=== PATIENT | male | born 1975 | race African-American/Black ===

== ENCOUNTER 2019-12-08 04:48 | Inpatient (IN) | payer MEDICAID, OTHER ==
[2019-12-08] VITALS (9 sets, daily range): BP systolic 91–178; BP diastolic 54–102
[~2019-12-08] VITALS: Ht 172.7 cm; Wt 170.1 kg
[2019-12-08] MEDS ORDERED: LABETALOL 5MG/ML SYR 20 MG/4 ML SYRINGE IV ONE (06:45)
[2019-12-08 07:00] LABS: HEMATOCRIT. 28.7 % (42.0-52.0); HEMOGLOBIN. 9.5 g/dL (14.0-18.0); MEAN CORPUSCULAR HEMOGLOBIN 29.8 pg (28.0-32.0); MEAN CORPUSCULAR VOLUME 89.9 fL (80.0-94.0); RED BLOOD CELL COUNT 3.19 mill/uL (4.7-6.1); RED CELL DISTRIBUTION WIDTH 17.2 % (11.6-14.6)
[2019-12-08 07:02] LABS: CHLORIDE 112 mEq/L (98-107)
[2019-12-08 07:10] LABS: CREATINE KINASE 733 IU/L (39-308)
[2019-12-08 07:21] LABS: CLARITY URINE CLOUDY (CLEAR); COLOR URINE YELLOW (YELLOW); KETONES URINE TRACE (NEGATIVE); LEUKOCYTE ESTERASE URINE NEGATIVE (NEGATIVE); NITRITE URINE NEGATIVE (NEGATIVE); OCCULT BLOOD URINE 2+ (NEGATIVE); PROTEIN URINE 3+ (NEGATIVE); SPECIFIC GRAVITY URINE 1.016 (1.005-1.030)
[2019-12-08 07:32] LABS: INR 1.3; PROTHROMBIN TIME 13.2 sec (9.6-11.0)
[2019-12-08] MEDS ORDERED: NICARDIPINE 40MG/200ML PREMIX 200 ML IV PRN (08:30)
[2019-12-08] MEDS ORDERED: DEXTROSE 50% WATER 50ML SYRINGE IV SCH (09:00)
[2019-12-08 09:03] LABS: PLATELET ESTIMATE NORMAL
[2019-12-08 09:04] LABS: PLATELET 202 x1000/uL (130-400)
[2019-12-08] MEDS ORDERED: PIPERACILLIN/TAZOBACTAM 3.375GM/50ML PREMIX IV ONE (09:45)
[2019-12-08] MEDS ORDERED: PIPERACILLIN/TAZ 3.375G PREMIX 50 ML IV NR (09:45)
[2019-12-08] MEDS ORDERED: SODIUM CHLORIDE 0.9% 250 ML IV ONE (09:45)
[2019-12-08] MEDS ORDERED: CLONIDINE 0.1MG TABLET PO PRN (11:00)
[2019-12-08] MEDS ORDERED: ONDANSETRON HCL 4MG/2ML INJ IV PRN (11:00)
[2019-12-08] MEDS ORDERED: PIPERACILLIN/TAZOBACTAM 3.375 G in DEXT 5% WATER 100 ML IV SCH (11:15)
[2019-12-08] MEDS ORDERED: LABETALOL 5MG/ML SYR 20 MG/4 ML SYRINGE IV SCH (11:45)
[2019-12-08] MEDS: CARVEDILOL 12.5MG TABLET PO SCH ×3 (11:45→21:00)
[2019-12-08] MEDS ORDERED: FUROSEMIDE 40MG/4ML VIAL IVP SCH (11:45)
[2019-12-08] MEDS ORDERED: HYDRALAZINE HCL 100MG TABLET PO SCH (12:00)
[2019-12-08 14:49] LABS: BG BASE EXCESS -1.6 mmol/L (-2.0-2.0); BG CARBOXYHEMOGLOBIN 0.3 % (0.5-1.5); BG DEOXYHEMOGLOBIN 6.3 % (0.0-5.0); BG FRACTION INSPIRED OXYGEN 21; BG HCO3 ACT 23.6 mmol/L (22.0-26.0); BG METHEMOGLOBIN 0.4 % (0.0-1.5); BG OXYGEN SATURATION 93.7 % (92.0-98.5); BG PCO2 41.3 mmHg (35.0-45.0); BG PH 7.374 (7.350-7.450); BG PO2 71.6 mmHg (75.0-100.0); BG SAMPLE SITE LEFT BRACHIAL; BG TOTAL HEMOGLOBIN 9.4 g/dL (12.0-18.0); BG VENT MODE ROOM AIR
[2019-12-08] MEDS ORDERED: PIPERACILLIN/TAZOBACTAM 2.25 G in DEXTROSE 5% WATER 50 ML IV SCH (16:00)
[2019-12-08] MEDS ORDERED: CARV3.1242 MT (17:33)
[2019-12-08] MEDS ORDERED: FURO-152 PO (17:34)
[2019-12-08] MEDS ORDERED: CARV3.1242 PO (17:36)
[2019-12-08] MEDS: POLYVINYL ALCOHOL OPHTH DROPS 15ML EACHEYE SCH (18:45)
[2019-12-08] MEDS: ENOXAPARIN 40MG/0.4ML SYR SUBCUT SCH (19:11)
[2019-12-08] MEDS: SODIUM POLYSTYRENE SULFONATE 15 G/60 ML BOT PO SCH ×2 (20:42→23:50)
[2019-12-08 21:55] LABS: BG BASE EXCESS -4.9 mmol/L (-2.0-2.0); BG CARBOXYHEMOGLOBIN 0.2 % (0.5-1.5); BG DEOXYHEMOGLOBIN 2.6 % (0.0-5.0); BG FRACTION INSPIRED OXYGEN 28; BG HCO3 ACT 21.5 mmol/L (22.0-26.0); BG METHEMOGLOBIN 0.1 % (0.0-1.5); BG OXYGEN SATURATION 97.4 % (92.0-98.5); BG OXYHEMOGLOBIN 97.1 % (94.0-97.0); BG PCO2 46.2 mmHg (35.0-45.0); BG PH 7.286 (7.350-7.450); BG PO2 106.1 mmHg (75.0-100.0); BG SAMPLE SITE RIGHT RADIAL; BG TOTAL HEMOGLOBIN 9.2 g/dL (12.0-18.0); BG VENT MODE NASAL CANNULA
[2019-12-08] MEDS: PIPERACILLIN/TAZOBACTAM 2.25 G in DEXTROSE 5% WATER 50 ML IV SCH (21:59)
[2019-12-08] MEDS: HYDRALAZINE HCL 100MG TABLET PO SCH (22:00)
[2019-12-08] MEDS ORDERED: IOHEXOL-350 100 ML BOTTLE ONE (23:18)
[2019-12-09] VITALS (11 sets, daily range): BP systolic 129–159; BP diastolic 59–102
[2019-12-09] MEDS: POLYVINYL ALCOHOL OPHTH DROPS 15ML EACHEYE SCH ×4 (00:50→18:43)
[2019-12-09] MEDS: PIPERACILLIN/TAZOBACTAM 2.25 G in DEXTROSE 5% WATER 50 ML IV SCH ×3 (04:00→21:06)
[2019-12-09 04:13] LABS: PHOSPHORUS 4.4 mg/dL (2.5-4.9)
[2019-12-09 04:29] LABS: T4 FREE 1.12 ng/dL (0.76-1.46)
[2019-12-09] MEDS: HYDRALAZINE HCL 100MG TABLET PO SCH ×3 (05:49→21:06)
[2019-12-09 06:33] LABS: HEMATOCRIT. 27.4 % (42.0-52.0); MEAN CORPUSCULAR HEMOGLOBIN 29.7 pg (28.0-32.0); MEAN CORPUSCULAR VOLUME 90.5 fL (80.0-94.0); MEAN PLATELET VOLUME 10.6 fl (7.4-10.4); PLATELET 125 x1000/uL (130-400); RED BLOOD CELL COUNT 3.03 mill/uL (4.7-6.1)
[2019-12-09] MEDS: AMLODIPINE 10MG TABLET PO SCH ×2 (08:31→08:33)
[2019-12-09] MEDS: CARVEDILOL 12.5MG TABLET PO SCH ×2 (08:31→21:06)
[2019-12-09 09:57] LABS: *AMPHETAMINES SCREEN URINE NEGATIVE (NEGATIVE); *BARBITURATES SCREEN URINE NEGATIVE (NEGATIVE); *BENZODIAZEPINES SCREEN URINE NEGATIVE (NEGATIVE); *COCAINE SCREEN URINE NEGATIVE (NEGATIVE); CANNABINOID URINE SCREEN NEGATIVE (NEGATIVE); OPIATES URINE SCREEN NEGATIVE (NEGATIVE); PHENCYCLIDINE URINE SCREEN NEGATIVE (NEGATIVE)
[2019-12-09 10:00] LABS: METHADONE URINE SCREEN NEGATIVE (NEGATIVE)
[2019-12-09] MEDS ORDERED: IOHEXOL-350 100 ML BOTTLE ONE (11:07)
[2019-12-09] MEDS: ACETAMINOPHEN 325MG TABLET PO PRN ×2 (11:28→21:06)
[2019-12-09] MEDS: FUROSEMIDE 40MG/4ML VIAL IVP SCH (13:52)
[2019-12-09] MEDS: ENOXAPARIN 40MG/0.4ML SYR SUBCUT SCH (13:53)
[2019-12-09 14:38] LABS: PLATELET ESTIMATE SLIGHTLY DECREASED
[2019-12-10] VITALS (9 sets, daily range): BP systolic 80–171; BP diastolic 26–98
[2019-12-10] MEDS: PIPERACILLIN/TAZOBACTAM 2.25 G in DEXTROSE 5% WATER 50 ML IV SCH ×3 (03:44→21:14)
[2019-12-10] MEDS: POLYVINYL ALCOHOL OPHTH DROPS 15ML EACHEYE SCH ×4 (05:50→18:00)
[2019-12-10] MEDS: HYDRALAZINE HCL 100MG TABLET PO SCH ×3 (05:50→21:15)
[2019-12-10 06:11] LABS: HEMATOCRIT. 24.1 % (42.0-52.0); HEMOGLOBIN. 7.7 g/dL (14.0-18.0); MEAN CORPUSCULAR VOLUME 90.6 fL (80.0-94.0); MEAN PLATELET VOLUME 10.5 fl (7.4-10.4); PLATELET 98 x1000/uL (130-400); RED BLOOD CELL COUNT 2.66 mill/uL (4.7-6.1); RED CELL DISTRIBUTION WIDTH 17.4 % (11.6-14.6)
[2019-12-10] MEDS: ENOXAPARIN 40MG/0.4ML SYR SUBCUT SCH (06:31)
[2019-12-10 06:33] LABS: PHOSPHORUS 4.6 mg/dL (2.5-4.9)
[2019-12-10 09:11] LABS: IMMUNOGLOBULIN A 379 mg/dL (90-386); IMMUNOGLOBULIN G 2676 mg/dL (603-1613); IMMUNOGLOBULIN M 140 mg/dL (20-172)
[2019-12-10] MEDS: FUROSEMIDE 40MG/4ML VIAL IVP SCH (09:46)
[2019-12-10] MEDS: AMLODIPINE 10MG TABLET PO SCH (09:46)
[2019-12-10] MEDS: CARVEDILOL 12.5MG TABLET PO SCH ×2 (09:46→21:00)
[2019-12-10] MEDS ORDERED: LIDOCAINE HCL 1% 20ML VIAL (Pyxis) INJ ONE (12:53)
[2019-12-10] MEDS ORDERED: SODIUM BICARBONATE 4% (2.4MEQ) 5ML VIAL IV ONE (12:53)
[2019-12-10] MEDS: ACETAMINOPHEN 325MG TABLET PO PRN ×2 (13:11→21:19)
[2019-12-10 14:18] LABS: PLATELET ESTIMATE SLIGHTLY DECREASED
[2019-12-11] VITALS (12 sets, daily range): BP systolic 97–126; BP diastolic 43–76
[2019-12-11] MEDS: ACETAMINOPHEN 325MG TABLET PO PRN ×2 (05:34→15:19)
[2019-12-11] MEDS: PIPERACILLIN/TAZOBACTAM 2.25 G in DEXTROSE 5% WATER 50 ML IV SCH ×2 (05:34→11:13)
[2019-12-11] MEDS: HYDRALAZINE HCL 100MG TABLET PO SCH ×3 (05:36→22:00)
[2019-12-11] MEDS: POLYVINYL ALCOHOL OPHTH DROPS 15ML EACHEYE SCH ×4 (05:36→18:00)
[2019-12-11 07:25] LABS: BASOPHILS % 2.1 % (0.0-2.0); EOSINOPHILS % 8.7 % (0.0-5.0); HEMATOCRIT. 25.2 % (42.0-52.0); HEMOGLOBIN. 8.2 g/dL (14.0-18.0); LYMPHOCYTES % 9.3 % (20.0-50.0); MEAN CORPUSCULAR HEMOGLOBIN 29.3 pg (28.0-32.0); MEAN CORPUSCULAR VOLUME 89.5 fL (80.0-94.0); MEAN PLATELET VOLUME 10.5 fl (7.4-10.4); MONOCYTES % 12.4 % (2.0-8.0); NEUTROPHILS % 67.5 % (40.0-76.0); PLATELET 96 x1000/uL (130-400); RED BLOOD CELL COUNT 2.81 mill/uL (4.7-6.1); RED CELL DISTRIBUTION WIDTH 16.5 % (11.6-14.6)
[2019-12-11 07:46] LABS: PHOSPHORUS 4.9 mg/dL (2.5-4.9)
[2019-12-11] MEDS: ENOXAPARIN 40MG/0.4ML SYR SUBCUT SCH (09:00)
[2019-12-11] MEDS: CARVEDILOL 12.5MG TABLET PO SCH ×2 (09:00→21:00)
[2019-12-11] MEDS: AMLODIPINE 10MG TABLET PO SCH (09:00)
[2019-12-11] MEDS: FUROSEMIDE 40MG/4ML VIAL IVP SCH (09:29)
[2019-12-11 11:27] LABS: HEPATITIS B SURFACE AB < 3.1 mIU/mL
[2019-12-11 11:38] LABS: HEPATITIS B SURFACE ANTIGEN NEGATIVE
[2019-12-12] VITALS (13 sets, daily range): BP systolic 112–141; BP diastolic 54–74
[2019-12-12] MEDS: PIPERACILLIN/TAZOBACTAM 2.25 G in DEXTROSE 5% WATER 50 ML IV SCH ×4 (03:38→21:09)
[2019-12-12] MEDS: POLYVINYL ALCOHOL OPHTH DROPS 15ML EACHEYE SCH ×4 (03:40→17:47)
[2019-12-12 05:11] LABS: HIV SCREEN 4G Non Reactive (Non Reactive)
[2019-12-12] MEDS: HYDRALAZINE HCL 100MG TABLET PO SCH ×3 (05:40→22:16)
[2019-12-12] MEDS: ENOXAPARIN 40MG/0.4ML SYR SUBCUT SCH (09:20)
[2019-12-12] MEDS: AMLODIPINE 10MG TABLET PO SCH (09:23)
[2019-12-12] MEDS: CARVEDILOL 12.5MG TABLET PO SCH ×2 (09:24→21:11)
[2019-12-12] MEDS: FUROSEMIDE 40MG/4ML VIAL IVP SCH (09:24)
[2019-12-12 10:31] LABS: EOSINOPHILS % 10.1 % (0.0-5.0); HEMATOCRIT. 24.7 % (42.0-52.0); LYMPHOCYTES % 8.9 % (20.0-50.0); MEAN CORPUSCULAR HEMOGLOBIN 29.1 pg (28.0-32.0); MEAN CORPUSCULAR VOLUME 89.8 fL (80.0-94.0); MEAN PLATELET VOLUME 9.9 fl (7.4-10.4); MONOCYTES % 13.7 % (2.0-8.0); NEUTROPHILS % 66.3 % (40.0-76.0); PLATELET 79 x1000/uL (130-400); RED BLOOD CELL COUNT 2.75 mill/uL (4.7-6.1); RED CELL DISTRIBUTION WIDTH 17.2 % (11.6-14.6)
[2019-12-12 10:53] LABS: PHOSPHORUS 4.4 mg/dL (2.5-4.9)
[2019-12-12] MEDS: ACETAMINOPHEN 325MG TABLET PO PRN (12:38)
[2019-12-13] VITALS (14 sets, daily range): BP systolic 107–139; BP diastolic 25–76
[2019-12-13] MEDS: POLYVINYL ALCOHOL OPHTH DROPS 15ML EACHEYE SCH ×5 (00:17→22:16)
[2019-12-13] MEDS: PIPERACILLIN/TAZOBACTAM 2.25 G in DEXTROSE 5% WATER 50 ML IV SCH ×2 (04:40→20:35)
[2019-12-13] MEDS: HYDRALAZINE HCL 100MG TABLET PO SCH ×3 (05:04→22:00)
[2019-12-13 07:20] LABS: PHOSPHORUS 4.8 mg/dL (2.5-4.9)
[2019-12-13 07:30] LABS: HEMATOCRIT. 24.2 % (42.0-52.0); MEAN CORPUSCULAR HEMOGLOBIN 29.6 pg (28.0-32.0); MEAN CORPUSCULAR VOLUME 89.4 fL (80.0-94.0); PLATELET 77 x1000/uL (130-400); RED BLOOD CELL COUNT 2.71 mill/uL (4.7-6.1)
[2019-12-13] MEDS: CARVEDILOL 12.5MG TABLET PO SCH ×2 (09:00→20:35)
[2019-12-13] MEDS: FUROSEMIDE 40MG/4ML VIAL IVP SCH (09:00)
[2019-12-13] MEDS: AMLODIPINE 10MG TABLET PO SCH (09:00)
[2019-12-13 13:45] LABS: PLATELET ESTIMATE DECREASED
[2019-12-13] MEDS: ACETAMINOPHEN 325MG TABLET PO PRN (20:35)
[2019-12-14] VITALS (12 sets, daily range): BP systolic 106–165; BP diastolic 59–111
[2019-12-14] MEDS: ACETAMINOPHEN 325MG TABLET PO PRN (03:50)
[2019-12-14] MEDS: HYDRALAZINE HCL 100MG TABLET PO SCH (05:47)
[2019-12-14 07:35] LABS: HEMATOCRIT. 23.5 % (42.0-52.0); HEMOGLOBIN. 7.7 g/dL (14.0-18.0); MEAN CORPUSCULAR HEMOGLOBIN 29.2 pg (28.0-32.0); MEAN CORPUSCULAR VOLUME 89.1 fL (80.0-94.0); MEAN PLATELET VOLUME 9.7 fl (7.4-10.4); PLATELET 60 x1000/uL (130-400); RED BLOOD CELL COUNT 2.64 mill/uL (4.7-6.1); RED CELL DISTRIBUTION WIDTH 17.2 % (11.6-14.6)
[2019-12-14 07:53] LABS: PHOSPHORUS 4.7 mg/dL (2.5-4.9)
[2019-12-14] MEDS: AMLODIPINE 10MG TABLET PO SCH (09:29)
[2019-12-14] MEDS: POLYVINYL ALCOHOL OPHTH DROPS 15ML EACHEYE SCH ×4 (09:29→20:37)
[2019-12-14] MEDS: FUROSEMIDE 40MG/4ML VIAL IVP SCH (09:29)
[2019-12-14] MEDS: CARVEDILOL 12.5MG TABLET PO SCH ×2 (09:30→20:36)
[2019-12-14 09:51] LABS: PLATELET ESTIMATE DECREASED
[2019-12-14] MEDS ORDERED: LOSA50TA41 MT (12:12)
[2019-12-14] MEDS ORDERED: COR12 PO (12:12)
[2019-12-14] MEDS: HYDRALAZINE HCL 50MG TABLET PO SCH (17:26)
[2019-12-15] VITALS (12 sets, daily range): BP systolic 97–140; BP diastolic 49–91
[2019-12-15] MEDS: HYDRALAZINE HCL 50MG TABLET PO SCH ×4 (00:18→17:41)
[2019-12-15] MEDS: ACETAMINOPHEN 325MG TABLET PO PRN ×2 (00:21→08:23)
[2019-12-15 07:05] LABS: BASOPHILS % 1.4 % (0.0-2.0); EOSINOPHILS % 8.9 % (0.0-5.0); HEMATOCRIT. 25.3 % (42.0-52.0); HEMOGLOBIN. 8.3 g/dL (14.0-18.0); LYMPHOCYTES % 10.4 % (20.0-50.0); MEAN CORPUSCULAR HEMOGLOBIN 29.2 pg (28.0-32.0); MEAN CORPUSCULAR VOLUME 89.1 fL (80.0-94.0); MEAN PLATELET VOLUME 9.7 fl (7.4-10.4); MONOCYTES % 14.1 % (2.0-8.0); NEUTROPHILS % 65.2 % (40.0-76.0); PLATELET 70 x1000/uL (130-400); RED BLOOD CELL COUNT 2.84 mill/uL (4.7-6.1); RED CELL DISTRIBUTION WIDTH 16.8 % (11.6-14.6)
[2019-12-15] MEDS: FUROSEMIDE 40MG/4ML VIAL IVP SCH (08:25)
[2019-12-15] MEDS: AMLODIPINE 2.5MG TABLET PO SCH ×2 (08:25→20:55)
[2019-12-15] MEDS: CARVEDILOL 12.5MG TABLET PO SCH ×2 (08:25→20:54)
[2019-12-15] MEDS: POLYVINYL ALCOHOL OPHTH DROPS 15ML EACHEYE SCH ×4 (08:32→21:00)
[2019-12-16] VITALS (9 sets, daily range): BP systolic 98–135; BP diastolic 42–73
[2019-12-16] MEDS: HYDRALAZINE HCL 50MG TABLET PO SCH ×3 (06:23→12:00)
[2019-12-16 06:35] LABS: HEMATOCRIT. 24.6 % (42.0-52.0); HEMOGLOBIN. 8.1 g/dL (14.0-18.0); MEAN CORPUSCULAR HEMOGLOBIN 29.4 pg (28.0-32.0); MEAN CORPUSCULAR VOLUME 89.4 fL (80.0-94.0); MEAN PLATELET VOLUME 10.4 fl (7.4-10.4); PLATELET 76 x1000/uL (130-400); RED BLOOD CELL COUNT 2.75 mill/uL (4.7-6.1)
[2019-12-16 06:44] LABS: PHOSPHORUS 4.5 mg/dL (2.5-4.9)
[2019-12-16] MEDS: ACETAMINOPHEN 325MG TABLET PO PRN (09:24)
[2019-12-16] MEDS: FUROSEMIDE 40MG/4ML VIAL IVP SCH (09:24)
[2019-12-16] MEDS: CARVEDILOL 12.5MG TABLET PO SCH (09:27)
[2019-12-16] MEDS: POLYVINYL ALCOHOL OPHTH DROPS 15ML EACHEYE SCH ×2 (09:29→13:00)
[2019-12-16] MEDS: AMLODIPINE 2.5MG TABLET PO SCH (11:04)
[2019-12-16 19:13] LABS: PLATELET ESTIMATE DECREASED
== END 2019-12-16 14:30 | disposition home health service (06) | DRG 194 ==
LOC: ER 05:06 → 5EST 10:03 → EDBEDREQ 10:07 → ENRESERV 11:59 → 5EST 12-09 01:05
PROVIDERS: ADMIT Internal Medicine; ATTEND Internal Medicine
PROC: 05HY33Z Insertion of Infusion Device into Upper Vein, Percutaneous Approach (ICD-10-PCS; principal; 2019-12-09)
PROC: B54MZZA Ultrasonography of Right Upper Extremity Veins, Guidance (ICD-10-PCS; 2019-12-09)
PROC: 0W9G3ZZ Drainage of Peritoneal Cavity, Percutaneous Approach (ICD-10-PCS; 2019-12-10)
PROC: 5A09457 Assistance with Respiratory Ventilation, 24-96 Consecutive Hours, Continuous Positive Airway Pressure (ICD-10-PCS; 2019-12-10)
PROC: 5A1D70Z Performance of Urinary Filtration, Intermittent, Less than 6 Hours Per Day (ICD-10-PCS; 2019-12-11)
PROC: 5A1D70Z Performance of Urinary Filtration, Intermittent, Less than 6 Hours Per Day (ICD-10-PCS; 2019-12-13)
PROC: 5A1D70Z Performance of Urinary Filtration, Intermittent, Less than 6 Hours Per Day (ICD-10-PCS; 2019-12-15)
DX: I13.2 Hypertensive heart and chronic kidney disease with heart failure and with stage 5 chronic kidney disease, or end stage renal disease (principal); I50.23 Acute on chronic systolic (congestive) heart failure; N17.9 Acute kidney failure, unspecified; I16.0 Hypertensive urgency; E66.01 Morbid (severe) obesity due to excess calories; E87.5 Hyperkalemia; E87.8 Other disorders of electrolyte and fluid balance, not elsewhere classified; E44.0 Moderate protein-calorie malnutrition; D64.9 Anemia, unspecified; N50.89 Other specified disorders of the male genital organs; W01.0XXA Fall on same level from slipping, tripping and stumbling without subsequent striking against object, initial encounter; I42.9 Cardiomyopathy, unspecified; N13.8 Other obstructive and reflux uropathy; E24.9 Cushing's syndrome, unspecified; E87.2 Acidosis; E78.5 Hyperlipidemia, unspecified; G93.41 Metabolic encephalopathy; M62.82 Rhabdomyolysis; G82.50 Quadriplegia, unspecified; E16.2 Hypoglycemia, unspecified; I27.20 Pulmonary hypertension, unspecified; I31.3 Pericardial effusion (noninflammatory); Z20.828 Contact with and (suspected) exposure to other viral communicable diseases; R18.8 Other ascites; D61.818 Other pancytopenia; N18.5 Chronic kidney disease, stage 5; Z95.810 Presence of automatic (implantable) cardiac defibrillator; Z68.43 Body mass index [BMI] 50.0-59.9, adult; Y93.89 Activity, other specified; Y92.89 Other specified places as the place of occurrence of the external cause; Y99.8 Other external cause status
CPT/HCPCS: 36415; 36600; 49083; 70496; 71045; 73560; 76770; 76937; 80048; 80053; 80061; 80305; 81003; 82040; 82375; 82550; 82784; 82805; 82962; 83605; 83735; 84100; 84134; 84145; 84439; 84443; 84484; 85025; 86334; 86705; 86706; 86803; 87340; 87389; 87635; 92610; 93005; 93306; 93970; 94660; 96365; 97116; 97162; 97530; 97535; 99291; C1725; J1650; J1940; J2543; J3490; J7050; J7060; Q9967

== ENCOUNTER 2020-03-18 11:37 | Inpatient (IN) | payer MEDICAID ==
[~2020-03-18] VITALS: Ht 172.7 cm; Wt 144.6 kg
[~2020-03-18 11:37] MED LIST: COR12 PO; LOSA50TA41 MT
[2020-03-18 12:17] LABS: EOSINOPHILS % 4.6 % (0.0-5.0); HEMATOCRIT. 29.5 % (42.0-52.0); HEMOGLOBIN. 9.3 g/dL (14.0-18.0); LYMPHOCYTES % 7.3 % (20.0-50.0); MEAN CORPUSCULAR HEMOGLOBIN 29.6 pg (28.0-32.0); MEAN CORPUSCULAR VOLUME 93.6 fL (80.0-94.0); MEAN PLATELET VOLUME 10.3 fl (7.4-10.4); MONOCYTES % 10.6 % (2.0-8.0); NEUTROPHILS % 76.5 % (40.0-76.0); PLATELET 129 x1000/uL (130-400); RED BLOOD CELL COUNT 3.16 mill/uL (4.7-6.1); RED CELL DISTRIBUTION WIDTH 16.2 % (11.6-14.6)
[2020-03-18 12:24] LABS: CHLORIDE 111 mEq/L (98-107)
[2020-03-18] MEDS ORDERED: DEXTROSE 50% WATER 50ML SYRINGE IV ONE ×2 (13:00→16:15)
[2020-03-18] MEDS ORDERED: ACETAMINOPHEN 650MG/20.3ML UDC PO ONE (13:00)
[2020-03-18] MEDS ORDERED: FUROSEMIDE 40MG/4ML VIAL IVP ONE (13:00)
[2020-03-18] MEDS ORDERED: INSULIN LISPRO 100 UNITS/ML SUBCUT ONE ×2 (13:00→13:45)
[2020-03-18] MEDS ORDERED: ASPIRIN 325MG EC TABLET PO ONE (13:00)
[2020-03-18] MEDS ORDERED: ONDANSETRON HCL 4MG/2ML INJ IV PRN (15:15)
[2020-03-18 16:00] VITALS: BP 184/138
[2020-03-18] MEDS: NIFEDIPINE XL 60MG TAB PO SCH (16:36)
[2020-03-18] MEDS: SODIUM POLYSTYRENE SULFONATE 15 G/60 ML BOT PO NR ×2 (16:50→20:49)
[2020-03-18 18:00] VITALS: BP 184/138
[2020-03-18] MEDS ORDERED: CLONIDINE 0.1MG TABLET PO PRN (18:00)
[2020-03-18] MEDS ORDERED: HYDRALAZINE HCL 100MG TABLET PO NR (18:30)
[2020-03-18] MEDS: ENOXAPARIN 40MG/0.4ML SYR SUBCUT SCH (18:33)
[2020-03-18 20:00] VITALS: BP 191/90
[2020-03-18] MEDS ORDERED: FUROSEMIDE 100MG/10ML VIAL IVP NR (20:00)
[2020-03-18] MEDS: HYDRALAZINE HCL 50MG TABLET PO SCH (20:48)
[2020-03-19] VITALS (7 sets, daily range): BP systolic 129–213; BP diastolic 75–116
[2020-03-19] MEDS: CLONIDINE 0.2MG TABLET PO PRN ×3 (00:41→22:00)
[2020-03-19 05:53] LABS: BASOPHILS % 1.3 % (0.0-2.0); EOSINOPHILS % 6.9 % (0.0-5.0); HEMATOCRIT. 24.7 % (42.0-52.0); LYMPHOCYTES % 7.1 % (20.0-50.0); MEAN CORPUSCULAR HEMOGLOBIN 29.9 pg (28.0-32.0); MEAN CORPUSCULAR VOLUME 91.9 fL (80.0-94.0); MEAN PLATELET VOLUME 9.9 fl (7.4-10.4); MONOCYTES % 12.9 % (2.0-8.0); NEUTROPHILS % 71.8 % (40.0-76.0); PLATELET 125 x1000/uL (130-400); RED BLOOD CELL COUNT 2.69 mill/uL (4.7-6.1); RED CELL DISTRIBUTION WIDTH 15.5 % (11.6-14.6)
[2020-03-19] MEDS: HYDRALAZINE HCL 50MG TABLET PO SCH (09:10)
[2020-03-19] MEDS: NIFEDIPINE XL 60MG TAB PO SCH ×2 (09:10→21:59)
[2020-03-19] MEDS: ACETAMINOPHEN 325MG TABLET PO PRN (13:15)
[2020-03-19] MEDS: HYDRALAZINE HCL 100MG TABLET PO SCH ×2 (14:20→21:59)
[2020-03-19] MEDS: TRAMADOL 50MG TABLET PO PRN (15:09)
[2020-03-19] MEDS: ENOXAPARIN 40MG/0.4ML SYR SUBCUT SCH (19:09)
[2020-03-19] MEDS: EPOETIN ALFA-EPBX 10,000 UNIT/ML VIAL SUBCUT SCH (22:00)
[2020-03-20] VITALS: BP 142/84
[2020-03-20 04:00] VITALS: BP 114/65
[2020-03-20] MEDS: HYDRALAZINE HCL 100MG TABLET PO SCH ×3 (06:00→21:12)
[2020-03-20 07:25] LABS: HEMATOCRIT. 24.8 % (42.0-52.0); HEMOGLOBIN. 8.1 g/dL (14.0-18.0); MEAN CORPUSCULAR HEMOGLOBIN 30.1 pg (28.0-32.0); MEAN CORPUSCULAR VOLUME 91.7 fL (80.0-94.0); MEAN PLATELET VOLUME 10.2 fl (7.4-10.4); PLATELET 144 x1000/uL (130-400); RED BLOOD CELL COUNT 2.71 mill/uL (4.7-6.1); RED CELL DISTRIBUTION WIDTH 15.5 % (11.6-14.6)
[2020-03-20 07:44] LABS: PHOSPHORUS 5.9 mg/dL (2.5-4.9)
[2020-03-20] MEDS: TRAMADOL 50MG TABLET PO PRN (07:59)
[2020-03-20 08:00] VITALS: BP 138/92
[2020-03-20] MEDS: NIFEDIPINE XL 60MG TAB PO SCH ×2 (08:01→21:12)
[2020-03-20 11:37] VITALS: BP 123/75
[2020-03-20 13:36] LABS: PLATELET ESTIMATE NORMAL
[2020-03-20 16:00] VITALS: BP 150/108
[2020-03-20] MEDS: ENOXAPARIN 40MG/0.4ML SYR SUBCUT SCH (18:01)
[2020-03-20 20:00] VITALS: BP 169/90
[2020-03-20 20:48] LABS: INR 1.3; PROTHROMBIN TIME 13.5 sec (9.6-11.0)
[2020-03-20] MEDS: CLONIDINE 0.2MG TABLET PO PRN (21:12)
[2020-03-20] MEDS: FAMOTIDINE 20MG TABLET PO SCH (21:13)
[2020-03-21] VITALS: BP 136/74
[2020-03-21 04:00] VITALS: BP 137/68
[2020-03-21] MEDS: HYDRALAZINE HCL 100MG TABLET PO SCH ×3 (06:11→22:00)
[2020-03-21 08:00] VITALS: BP 135/84
[2020-03-21] MEDS: NIFEDIPINE XL 60MG TAB PO SCH ×2 (08:13→21:00)
[2020-03-21 08:17] LABS: HEMATOCRIT. 23.2 % (42.0-52.0); HEMOGLOBIN. 7.6 g/dL (14.0-18.0); MEAN CORPUSCULAR HEMOGLOBIN 30.4 pg (28.0-32.0); MEAN CORPUSCULAR VOLUME 92.8 fL (80.0-94.0); PLATELET 104 x1000/uL (130-400); RED BLOOD CELL COUNT 2.51 mill/uL (4.7-6.1); RED CELL DISTRIBUTION WIDTH 15.7 % (11.6-14.6)
[2020-03-21 08:36] LABS: PHOSPHORUS 5.8 mg/dL (2.5-4.9)
[2020-03-21] MEDS ORDERED: LIDOCAINE HCL 1% 20ML VIAL (Pyxis) INJ ONE (09:13)
[2020-03-21] MEDS ORDERED: SODIUM BICARBONATE 4% (2.4MEQ) 5ML VIAL IV ONE (09:13)
[2020-03-21 11:55] VITALS: BP 121/66
[2020-03-21 16:00] VITALS: BP 127/61
[2020-03-21 20:00] VITALS: BP 109/70
[2020-03-21 21:25] LABS: PLATELET ESTIMATE DECREASED
[2020-03-21] MEDS: FAMOTIDINE 20MG TABLET PO SCH (22:45)
[2020-03-22] VITALS: BP 126/70
[2020-03-22 04:00] VITALS: BP 161/68
[2020-03-22] MEDS: HYDRALAZINE HCL 100MG TABLET PO SCH ×3 (05:50→21:44)
[2020-03-22 06:31] LABS: HEMATOCRIT. 24.7 % (42.0-52.0); HEMOGLOBIN. 8.1 g/dL (14.0-18.0); MEAN CORPUSCULAR HEMOGLOBIN 30.1 pg (28.0-32.0); MEAN CORPUSCULAR VOLUME 91.7 fL (80.0-94.0); MEAN PLATELET VOLUME 10.3 fl (7.4-10.4); PLATELET 116 x1000/uL (130-400); RED BLOOD CELL COUNT 2.69 mill/uL (4.7-6.1); RED CELL DISTRIBUTION WIDTH 15.6 % (11.6-14.6)
[2020-03-22 06:35] LABS: PHOSPHORUS 6.1 mg/dL (2.5-4.9)
[2020-03-22 08:00] VITALS: BP 108/44
[2020-03-22] MEDS: NIFEDIPINE XL 60MG TAB PO SCH ×2 (09:00→21:25)
[2020-03-22 12:00] VITALS: BP 143/75
[2020-03-22 13:57] LABS: PLATELET ESTIMATE SLIGHTLY DECREASED
[2020-03-22 16:00] VITALS: BP 125/55
[2020-03-22] MEDS: ENOXAPARIN 40MG/0.4ML SYR SUBCUT SCH (18:00)
[2020-03-22 20:00] VITALS: BP 123/63
[2020-03-22] MEDS: FAMOTIDINE 20MG TABLET PO SCH (21:25)
[2020-03-22] MEDS: EPOETIN ALFA-EPBX 10,000 UNIT/ML VIAL SUBCUT SCH (21:29)
[2020-03-23] VITALS: BP 115/59
[2020-03-23 04:00] VITALS: BP 121/60
[2020-03-23] MEDS: HYDRALAZINE HCL 100MG TABLET PO SCH ×3 (06:00→22:04)
[2020-03-23 07:24] LABS: HEMATOCRIT. 25.6 % (42.0-52.0); HEMOGLOBIN. 8.3 g/dL (14.0-18.0); MEAN CORPUSCULAR HEMOGLOBIN 29.6 pg (28.0-32.0); MEAN CORPUSCULAR VOLUME 91.7 fL (80.0-94.0); MEAN PLATELET VOLUME 10.6 fl (7.4-10.4); PLATELET 102 x1000/uL (130-400); RED CELL DISTRIBUTION WIDTH 15.9 % (11.6-14.6)
[2020-03-23 08:00] VITALS: BP_SYST 103; BP_SYST 118; BP_DIAS 62; BP_DIAS 70
[2020-03-23 08:16] LABS: PHOSPHORUS 5.5 mg/dL (2.5-4.9)
[2020-03-23] MEDS: NIFEDIPINE XL 60MG TAB PO SCH ×2 (09:06→22:04)
[2020-03-23 10:31] LABS: PLATELET ESTIMATE DECREASED
[2020-03-23] MEDS: OMEPRAZOLE 20MG CAPSULE EXTENDED RELEASE PO SCH (18:49)
[2020-03-23] MEDS: ENOXAPARIN 40MG/0.4ML SYR SUBCUT SCH (18:50)
[2020-03-23] MEDS: THROAT LOZENGES-BENZOCAINE/MENTH/CETYLPYRD CL LOZENGES MM PRN (18:51)
[2020-03-23 20:00] VITALS: BP 140/74
[2020-03-24] VITALS: BP 171/82
[2020-03-24] MEDS: CLONIDINE 0.2MG TABLET PO PRN (00:54)
[2020-03-24] MEDS: THROAT LOZENGES-BENZOCAINE/MENTH/CETYLPYRD CL LOZENGES MM PRN (00:59)
[2020-03-24 04:00] VITALS: BP 158/77
[2020-03-24 06:43] LABS: BASOPHILS % 0.9 % (0.0-2.0); EOSINOPHILS % 4.7 % (0.0-5.0); HEMATOCRIT. 23.3 % (42.0-52.0); HEMOGLOBIN. 7.7 g/dL (14.0-18.0); LYMPHOCYTES % 7.5 % (20.0-50.0); MEAN CORPUSCULAR HEMOGLOBIN 29.9 pg (28.0-32.0); MEAN CORPUSCULAR VOLUME 90.7 fL (80.0-94.0); MEAN PLATELET VOLUME 10.1 fl (7.4-10.4); MONOCYTES % 14.9 % (2.0-8.0); PLATELET 81 x1000/uL (130-400); RED BLOOD CELL COUNT 2.57 mill/uL (4.7-6.1)
[2020-03-24] MEDS: HYDRALAZINE HCL 100MG TABLET PO SCH ×3 (07:06→22:36)
[2020-03-24] MEDS: OMEPRAZOLE 20MG CAPSULE EXTENDED RELEASE PO SCH (07:07)
[2020-03-24 07:20] LABS: HEPATITIS B SURFACE ANTIGEN NEGATIVE; PHOSPHORUS 4.9 mg/dL (2.5-4.9)
[2020-03-24 07:49] LABS: HEPATITIS A AB IGM NEGATIVE (NEGATIVE)
[2020-03-24 08:00] VITALS: BP 126/62
[2020-03-24] MEDS: NIFEDIPINE XL 60MG TAB PO SCH ×2 (09:00→22:36)
[2020-03-24 12:00] VITALS: BP 120/59
[2020-03-24 16:00] VITALS: BP 115/59
[2020-03-24 20:00] VITALS: BP 127/80
[2020-03-24] MEDS: EPOETIN ALFA-EPBX 10,000 UNIT/ML VIAL SUBCUT SCH (22:37)
[2020-03-25] VITALS: BP 131/87
[2020-03-25 04:00] VITALS: BP 118/75
[2020-03-25] MEDS: HYDRALAZINE HCL 100MG TABLET PO SCH ×3 (07:23→21:42)
[2020-03-25] MEDS: OMEPRAZOLE 20MG CAPSULE EXTENDED RELEASE PO SCH (07:24)
[2020-03-25 08:00] VITALS: BP 154/80
[2020-03-25 08:37] LABS: HEMOGLOBIN. 8.6 g/dL (14.0-18.0); MEAN CORPUSCULAR HEMOGLOBIN 30.1 pg (28.0-32.0); MEAN CORPUSCULAR VOLUME 91.3 fL (80.0-94.0); MEAN PLATELET VOLUME 10.9 fl (7.4-10.4); PLATELET 77 x1000/uL (130-400); RED BLOOD CELL COUNT 2.85 mill/uL (4.7-6.1); RED CELL DISTRIBUTION WIDTH 15.4 % (11.6-14.6)
[2020-03-25 08:48] LABS: PHOSPHORUS 4.5 mg/dL (2.5-4.9)
[2020-03-25] MEDS: NIFEDIPINE XL 60MG TAB PO SCH ×2 (09:01→21:42)
[2020-03-25] MEDS: ACETAMINOPHEN 325MG TABLET PO PRN (09:15)
[2020-03-25] MEDS ORDERED: DIPHENHYDRAMINE 25MG CAPSULE PO PRN (11:00)
[2020-03-25 12:00] VITALS: BP 130/76
[2020-03-25 13:18] LABS: PLATELET ESTIMATE DECREASED
[2020-03-25] MEDS: TRAMADOL 50MG TABLET PO PRN (13:57)
[2020-03-25 16:00] VITALS: BP 116/60
[2020-03-25 20:00] VITALS: BP 135/76
[2020-03-26] VITALS: BP 130/75
[2020-03-26 04:00] VITALS: BP 116/54
[2020-03-26] MEDS: OMEPRAZOLE 20MG CAPSULE EXTENDED RELEASE PO SCH (06:46)
[2020-03-26] MEDS: HYDRALAZINE HCL 100MG TABLET PO SCH ×3 (06:46→21:29)
[2020-03-26 08:00] VITALS: BP 125/68
[2020-03-26] MEDS: FOLIC ACID/VITAMIN B COMP W-C TABLET PO SCH (09:58)
[2020-03-26] MEDS: NIFEDIPINE XL 60MG TAB PO SCH ×2 (09:58→21:28)
[2020-03-26] MEDS: THROAT LOZENGES-BENZOCAINE/MENTH/CETYLPYRD CL LOZENGES MM PRN ×2 (10:02→16:52)
[2020-03-26] MEDS: TRAMADOL 50MG TABLET PO PRN (10:11)
[2020-03-26 12:00] VITALS: BP 120/72
[2020-03-26 12:44] LABS: HEMOGLOBIN. 8.5 g/dL (14.0-18.0); MEAN CORPUSCULAR HEMOGLOBIN 29.7 pg (28.0-32.0); MEAN CORPUSCULAR VOLUME 90.6 fL (80.0-94.0); MEAN PLATELET VOLUME 9.5 fl (7.4-10.4); PLATELET 90 x1000/uL (130-400); RED BLOOD CELL COUNT 2.87 mill/uL (4.7-6.1); RED CELL DISTRIBUTION WIDTH 15.4 % (11.6-14.6)
[2020-03-26 14:26] LABS: PLATELET ESTIMATE DECREASED
[2020-03-26 16:00] VITALS: BP 126/62
[2020-03-26 20:00] VITALS: BP 124/61
[2020-03-27] VITALS: BP 122/77
[2020-03-27 04:00] VITALS: BP 117/64
[2020-03-27] MEDS: OMEPRAZOLE 20MG CAPSULE EXTENDED RELEASE PO SCH (06:24)
[2020-03-27] MEDS: HYDRALAZINE HCL 100MG TABLET PO SCH ×3 (06:25→22:31)
[2020-03-27 06:37] LABS: HEMATOCRIT. 26.3 % (42.0-52.0); HEMOGLOBIN. 8.6 g/dL (14.0-18.0); MEAN CORPUSCULAR HEMOGLOBIN 29.8 pg (28.0-32.0); MEAN CORPUSCULAR VOLUME 91.5 fL (80.0-94.0); MEAN PLATELET VOLUME 9.3 fl (7.4-10.4); PLATELET 79 x1000/uL (130-400); RED BLOOD CELL COUNT 2.87 mill/uL (4.7-6.1)
[2020-03-27 06:53] LABS: PHOSPHORUS 4.5 mg/dL (2.5-4.9)
[2020-03-27 08:00] VITALS: BP 138/66
[2020-03-27] MEDS: FOLIC ACID/VITAMIN B COMP W-C TABLET PO SCH (08:35)
[2020-03-27] MEDS: NIFEDIPINE XL 60MG TAB PO SCH ×2 (08:35→20:13)
[2020-03-27 11:10] LABS: PLATELET ESTIMATE DECREASED
[2020-03-27 12:01] VITALS: BP 136/76
[2020-03-27] MEDS: TRAMADOL 50MG TABLET PO PRN ×2 (13:19→20:13)
[2020-03-27 16:00] VITALS: BP 115/81
[2020-03-27 20:00] VITALS: BP 129/65
[2020-03-28] VITALS: BP 126/58
[2020-03-28 04:00] VITALS: BP 133/66
[2020-03-28] MEDS: TRAMADOL 50MG TABLET PO PRN ×3 (06:30→22:33)
[2020-03-28] MEDS: HYDRALAZINE HCL 100MG TABLET PO SCH ×3 (06:31→21:50)
[2020-03-28] MEDS: OMEPRAZOLE 20MG CAPSULE EXTENDED RELEASE PO SCH (06:31)
[2020-03-28 08:00] VITALS: BP 146/72
[2020-03-28] MEDS: NIFEDIPINE XL 60MG TAB PO SCH ×2 (08:29→21:50)
[2020-03-28] MEDS: FOLIC ACID/VITAMIN B COMP W-C TABLET PO SCH (08:29)
[2020-03-28 12:00] VITALS: BP 146/98
[2020-03-28 16:00] VITALS: BP 156/80
[2020-03-28 20:00] VITALS: BP 151/79
[2020-03-29] VITALS: BP_SYST 141; BP_DIAS 69; BP_DIAS 70
[2020-03-29 04:00] VITALS: BP 141/69
[2020-03-29] MEDS: OMEPRAZOLE 20MG CAPSULE EXTENDED RELEASE PO SCH (06:32)
[2020-03-29] MEDS: HYDRALAZINE HCL 100MG TABLET PO SCH ×3 (06:32→23:00)
[2020-03-29] MEDS: TRAMADOL 50MG TABLET PO PRN ×3 (06:33→23:01)
[2020-03-29 07:32] LABS: HEMATOCRIT. 25.2 % (42.0-52.0); HEMOGLOBIN. 8.3 g/dL (14.0-18.0); MEAN CORPUSCULAR HEMOGLOBIN 30.1 pg (28.0-32.0); MEAN PLATELET VOLUME 9.7 fl (7.4-10.4); PLATELET 121 x1000/uL (130-400); RED BLOOD CELL COUNT 2.77 mill/uL (4.7-6.1); RED CELL DISTRIBUTION WIDTH 15.8 % (11.6-14.6)
[2020-03-29 07:37] LABS: PHOSPHORUS 5.1 mg/dL (2.5-4.9)
[2020-03-29 08:00] VITALS: BP 132/64
[2020-03-29] MEDS: NIFEDIPINE XL 60MG TAB PO SCH ×2 (11:45→23:01)
[2020-03-29] MEDS: FOLIC ACID/VITAMIN B COMP W-C TABLET PO SCH (11:45)
[2020-03-29] MEDS: THROAT LOZENGES-BENZOCAINE/MENTH/CETYLPYRD CL LOZENGES MM PRN (11:47)
[2020-03-29 12:00] VITALS: BP 126/66
[2020-03-29 16:00] VITALS: BP 144/76
[2020-03-29] MEDS: POLYVINYL ALCOHOL OPHTH DROPS 15ML BOTHEYE PRN ×2 (16:38→23:01)
[2020-03-29 20:00] VITALS: BP 152/72
[2020-03-29 20:33] LABS: PLATELET ESTIMATE DECREASED
[2020-03-30] VITALS: BP 146/80
[2020-03-30 04:00] VITALS: BP 148/67
[2020-03-30] MEDS: OMEPRAZOLE 20MG CAPSULE EXTENDED RELEASE PO SCH (06:25)
[2020-03-30] MEDS: HYDRALAZINE HCL 100MG TABLET PO SCH ×3 (06:25→21:34)
[2020-03-30] MEDS: TRAMADOL 50MG TABLET PO PRN (06:39)
[2020-03-30] MEDS: POLYVINYL ALCOHOL OPHTH DROPS 15ML BOTHEYE PRN (06:40)
[2020-03-30 08:00] VITALS: BP 137/67
[2020-03-30] MEDS: FOLIC ACID/VITAMIN B COMP W-C TABLET PO SCH (09:05)
[2020-03-30] MEDS: NIFEDIPINE XL 60MG TAB PO SCH ×2 (09:06→21:34)
[2020-03-30 10:47] LABS: HEMATOCRIT. 26.5 % (42.0-52.0); HEMOGLOBIN. 8.6 g/dL (14.0-18.0); MEAN CORPUSCULAR HEMOGLOBIN 29.8 pg (28.0-32.0); MEAN CORPUSCULAR VOLUME 91.4 fL (80.0-94.0); MEAN PLATELET VOLUME 9.8 fl (7.4-10.4); PLATELET 99 x1000/uL (130-400); RED CELL DISTRIBUTION WIDTH 15.9 % (11.6-14.6)
[2020-03-30 11:02] LABS: PHOSPHORUS 4.7 mg/dL (2.5-4.9)
[2020-03-30] MEDS ORDERED: HYDR100T26 PO (11:13)
[2020-03-30] MEDS ORDERED: NEPVIT PO (11:13)
[2020-03-30] MEDS ORDERED: NIFE-32 PO (11:13)
[2020-03-30 12:00] VITALS: BP 139/76
[2020-03-30] MEDS: ACETAMINOPHEN 325MG TABLET PO PRN ×2 (15:35→21:50)
[2020-03-30 16:00] VITALS: BP 141/70
[2020-03-30 20:00] VITALS: BP 125/63
[2020-03-30 21:12] LABS: PLATELET ESTIMATE DECREASED
[2020-03-31] VITALS: BP 176/83
[2020-03-31] MEDS: CLONIDINE 0.2MG TABLET PO PRN (01:45)
[2020-03-31] MEDS: POLYVINYL ALCOHOL OPHTH DROPS 15ML BOTHEYE PRN (03:06)
[2020-03-31] MEDS: OMEPRAZOLE 20MG CAPSULE EXTENDED RELEASE PO SCH (06:33)
[2020-03-31] MEDS: HYDRALAZINE HCL 100MG TABLET PO SCH ×3 (06:33→22:00)
[2020-03-31 06:48] LABS: PHOSPHORUS 5.1 mg/dL (2.5-4.9)
[2020-03-31 06:50] LABS: HEMATOCRIT. 24.9 % (42.0-52.0); HEMOGLOBIN. 8.2 g/dL (14.0-18.0); MEAN CORPUSCULAR HEMOGLOBIN 30.2 pg (28.0-32.0); MEAN CORPUSCULAR VOLUME 91.7 fL (80.0-94.0); MEAN PLATELET VOLUME 9.5 fl (7.4-10.4); PLATELET 103 x1000/uL (130-400); RED BLOOD CELL COUNT 2.72 mill/uL (4.7-6.1); RED CELL DISTRIBUTION WIDTH 15.7 % (11.6-14.6)
[2020-03-31 06:59] VITALS: BP 138/70
[2020-03-31 08:00] VITALS: BP 132/76
[2020-03-31] MEDS: NIFEDIPINE XL 60MG TAB PO SCH ×2 (08:40→21:00)
[2020-03-31] MEDS: FOLIC ACID/VITAMIN B COMP W-C TABLET PO SCH (08:40)
[2020-03-31] MEDS: ACETAMINOPHEN 325MG TABLET PO PRN (08:44)
[2020-03-31 12:00] VITALS: BP 134/74
[2020-03-31 12:47] LABS: PLATELET ESTIMATE DECREASED
[2020-03-31] MEDS: TRAMADOL 50MG TABLET PO PRN ×2 (14:46→22:38)
[2020-03-31 16:00] VITALS: BP_SYST 128; BP_SYST 134; BP_DIAS 60; BP_DIAS 76
[2020-03-31 20:00] VITALS: BP 118/67
[2020-03-31] MEDS ORDERED: EPOETIN ALFA-EPBX 10,000 UNIT/ML VIAL SUBCUT SCH (21:00)
[2020-04-01] VITALS (7 sets, daily range): BP systolic 129–173; BP diastolic 64–86
[2020-04-01] MEDS: OMEPRAZOLE 20MG CAPSULE EXTENDED RELEASE PO SCH (07:10)
[2020-04-01] MEDS: HYDRALAZINE HCL 100MG TABLET PO SCH ×3 (07:10→21:02)
[2020-04-01 07:27] LABS: HEMOGLOBIN. 8.2 g/dL (14.0-18.0); MEAN CORPUSCULAR HEMOGLOBIN 29.8 pg (28.0-32.0); MEAN CORPUSCULAR VOLUME 90.8 fL (80.0-94.0); MEAN PLATELET VOLUME 9.5 fl (7.4-10.4); PLATELET 92 x1000/uL (130-400); RED BLOOD CELL COUNT 2.75 mill/uL (4.7-6.1); RED CELL DISTRIBUTION WIDTH 15.8 % (11.6-14.6)
[2020-04-01] MEDS: FOLIC ACID/VITAMIN B COMP W-C TABLET PO SCH (08:41)
[2020-04-01] MEDS: NIFEDIPINE XL 60MG TAB PO SCH ×2 (08:41→21:02)
[2020-04-01] MEDS: TRAMADOL 50MG TABLET PO PRN ×2 (08:45→15:17)
[2020-04-01 13:45] LABS: PLATELET ESTIMATE DECREASED
[2020-04-01] MEDS ORDERED: ALTEPLASE 2MG/VIAL ITC NR (14:00)
[2020-04-01] MEDS: POLYVINYL ALCOHOL OPHTH DROPS 15ML BOTHEYE PRN (22:55)
[2020-04-01] MEDS: ACETAMINOPHEN 325MG TABLET PO PRN (22:59)
[2020-04-02] VITALS: BP 139/79
[2020-04-02 04:00] VITALS: BP 146/77
[2020-04-02] MEDS: HYDRALAZINE HCL 100MG TABLET PO SCH ×3 (05:37→20:21)
[2020-04-02] MEDS: TRAMADOL 50MG TABLET PO PRN (06:26)
[2020-04-02] MEDS: POLYVINYL ALCOHOL OPHTH DROPS 15ML BOTHEYE PRN (06:29)
[2020-04-02 07:19] LABS: HEMATOCRIT. 26.7 % (42.0-52.0); HEMOGLOBIN. 8.8 g/dL (14.0-18.0); MEAN CORPUSCULAR HEMOGLOBIN 30.1 pg (28.0-32.0); MEAN CORPUSCULAR VOLUME 91.3 fL (80.0-94.0); MEAN PLATELET VOLUME 9.7 fl (7.4-10.4); PLATELET 108 x1000/uL (130-400); RED BLOOD CELL COUNT 2.93 mill/uL (4.7-6.1); RED CELL DISTRIBUTION WIDTH 15.8 % (11.6-14.6)
[2020-04-02 08:00] VITALS: BP_SYST 144; BP_SYST 157; BP_DIAS 75; BP_DIAS 83
[2020-04-02] MEDS: FOLIC ACID/VITAMIN B COMP W-C TABLET PO SCH (08:17)
[2020-04-02] MEDS: OMEPRAZOLE 20MG CAPSULE EXTENDED RELEASE PO SCH (08:17)
[2020-04-02] MEDS: NIFEDIPINE XL 60MG TAB PO SCH ×2 (09:00→20:12)
[2020-04-02 12:00] VITALS: BP_SYST 129; BP_SYST 159; BP_DIAS 74; BP_DIAS 81
[2020-04-02 13:40] LABS: PLATELET ESTIMATE DECREASED
[2020-04-02 16:00] VITALS: BP 151/85
[2020-04-02 20:00] VITALS: BP 189/96
[2020-04-03] VITALS: BP 164/91
[2020-04-03] MEDS ORDERED: ALTEPLASE 2MG/VIAL ITC NR (00:30)
[2020-04-03] MEDS: CLONIDINE 0.1MG TABLET PO PRN ×2 (02:31→06:42)
[2020-04-03 04:00] VITALS: BP 180/100
[2020-04-03] MEDS: HYDRALAZINE HCL 100MG TABLET PO SCH ×2 (05:54→14:14)
[2020-04-03] MEDS: OMEPRAZOLE 20MG CAPSULE EXTENDED RELEASE PO SCH (06:42)
[2020-04-03] MEDS: TRAMADOL 50MG TABLET PO PRN ×2 (06:47→22:43)
[2020-04-03 08:00] VITALS: BP 187/96
[2020-04-03] MEDS: FOLIC ACID/VITAMIN B COMP W-C TABLET PO SCH (09:05)
[2020-04-03] MEDS ORDERED: CLONIDINE 0.2MG TABLET PO PRN (09:30)
[2020-04-03] MEDS ORDERED: CLONIDINE 0.1MG TABLET PO SCH (10:00)
[2020-04-03 16:00] VITALS: BP 128/83
[2020-04-03 20:39] VITALS: BP 165/97
[2020-04-03] MEDS ORDERED: NIFEDIPINE XL 60MG TAB PO SCH (21:00)
[2020-04-04 00:15] VITALS: BP 188/98
[2020-04-04] MEDS: FUROSEMIDE 40MG TABLET PO SCH ×3 (00:15→22:24)
[2020-04-04] MEDS: HYDRALAZINE HCL 100MG TABLET PO SCH ×4 (00:16→22:23)
[2020-04-04 04:00] VITALS: BP 153/88
[2020-04-04 06:38] LABS: HEMATOCRIT. 24.5 % (42.0-52.0); MEAN CORPUSCULAR HEMOGLOBIN 29.9 pg (28.0-32.0); MEAN CORPUSCULAR VOLUME 91.2 fL (80.0-94.0); MEAN PLATELET VOLUME 9.6 fl (7.4-10.4); PLATELET 89 x1000/uL (130-400); RED BLOOD CELL COUNT 2.69 mill/uL (4.7-6.1); RED CELL DISTRIBUTION WIDTH 15.7 % (11.6-14.6)
[2020-04-04] MEDS: OMEPRAZOLE 20MG CAPSULE EXTENDED RELEASE PO SCH (06:52)
[2020-04-04] MEDS: TRAMADOL 50MG TABLET PO PRN ×3 (06:55→22:22)
[2020-04-04 08:03] LABS: PHOSPHORUS 4.4 mg/dL (2.5-4.9)
[2020-04-04 08:07] VITALS: BP 135/69
[2020-04-04] MEDS: FOLIC ACID/VITAMIN B COMP W-C TABLET PO SCH (08:25)
[2020-04-04 12:30] VITALS: BP 123/63
[2020-04-04 13:49] LABS: PLATELET ESTIMATE SLIGHTLY DECREASED
[2020-04-04 14:40] LABS: INR 1.1; PARTIAL THROMBOPLASTIN TIME 30.2 sec (23.4-31.0)
[2020-04-04] MEDS ORDERED: LIDOCAINE HCL 1% 20ML VIAL (Pyxis) INJ ONE (14:55)
[2020-04-04] MEDS ORDERED: SODIUM BICARBONATE 4% (2.4MEQ) 5ML VIAL IV ONE (14:55)
[2020-04-04 15:58] VITALS: BP 142/74
[2020-04-04 20:00] VITALS: BP 121/79
[2020-04-04] MEDS: NIFEDIPINE XL 30MG TAB PO SCH (22:23)
[2020-04-05] VITALS: BP 134/83
[2020-04-05 04:00] VITALS: BP 145/96
[2020-04-05 06:31] LABS: BASOPHILS % 0.6 % (0.0-2.0); EOSINOPHILS % 8.6 % (0.0-5.0); HEMATOCRIT. 25.1 % (42.0-52.0); HEMOGLOBIN. 8.1 g/dL (14.0-18.0); LYMPHOCYTES % 8.8 % (20.0-50.0); MEAN CORPUSCULAR HEMOGLOBIN 29.7 pg (28.0-32.0); MEAN CORPUSCULAR VOLUME 92.2 fL (80.0-94.0); MEAN PLATELET VOLUME 9.5 fl (7.4-10.4); PLATELET 105 x1000/uL (130-400); RED BLOOD CELL COUNT 2.73 mill/uL (4.7-6.1); RED CELL DISTRIBUTION WIDTH 15.2 % (11.6-14.6)
[2020-04-05 06:45] LABS: PHOSPHORUS 4.7 mg/dL (2.5-4.9)
[2020-04-05] MEDS: OMEPRAZOLE 20MG CAPSULE EXTENDED RELEASE PO SCH (07:02)
[2020-04-05] MEDS: HYDRALAZINE HCL 100MG TABLET PO SCH ×3 (07:02→21:59)
[2020-04-05] MEDS: TRAMADOL 50MG TABLET PO PRN ×3 (07:03→21:58)
[2020-04-05 07:55] VITALS: BP 122/77
[2020-04-05] MEDS: FUROSEMIDE 40MG TABLET PO SCH ×2 (09:14→21:59)
[2020-04-05] MEDS: FOLIC ACID/VITAMIN B COMP W-C TABLET PO SCH (09:14)
[2020-04-05 12:00] VITALS: BP 130/55
[2020-04-05 16:33] VITALS: BP 130/70
[2020-04-05 20:00] VITALS: BP 137/55
[2020-04-05] MEDS: NIFEDIPINE XL 30MG TAB PO SCH (21:59)
[2020-04-06] VITALS: BP 135/57
[2020-04-06 04:00] VITALS: BP 139/76
[2020-04-06 06:06] LABS: BASOPHILS % 1.4 % (0.0-2.0); EOSINOPHILS % 7.9 % (0.0-5.0); HEMATOCRIT. 25.4 % (42.0-52.0); HEMOGLOBIN. 8.1 g/dL (14.0-18.0); LYMPHOCYTES % 9.1 % (20.0-50.0); MEAN CORPUSCULAR HEMOGLOBIN 29.3 pg (28.0-32.0); MEAN CORPUSCULAR VOLUME 91.8 fL (80.0-94.0); MEAN PLATELET VOLUME 9.9 fl (7.4-10.4); MONOCYTES % 12.7 % (2.0-8.0); NEUTROPHILS % 68.9 % (40.0-76.0); PLATELET 123 x1000/uL (130-400); RED BLOOD CELL COUNT 2.77 mill/uL (4.7-6.1); RED CELL DISTRIBUTION WIDTH 15.6 % (11.6-14.6)
[2020-04-06 06:32] LABS: PHOSPHORUS 4.4 mg/dL (2.5-4.9)
[2020-04-06] MEDS: TRAMADOL 50MG TABLET PO PRN ×3 (06:50→21:55)
[2020-04-06] MEDS: OMEPRAZOLE 20MG CAPSULE EXTENDED RELEASE PO SCH (06:50)
[2020-04-06] MEDS: HYDRALAZINE HCL 100MG TABLET PO SCH ×3 (06:50→21:55)
[2020-04-06 08:00] VITALS: BP 125/66
[2020-04-06] MEDS: FUROSEMIDE 40MG TABLET PO SCH ×2 (09:25→21:54)
[2020-04-06] MEDS: FOLIC ACID/VITAMIN B COMP W-C TABLET PO SCH (09:25)
[2020-04-06 12:00] VITALS: BP 129/66
[2020-04-06 16:00] VITALS: BP 151/73
[2020-04-06 20:00] VITALS: BP 135/66
[2020-04-06] MEDS: NIFEDIPINE XL 30MG TAB PO SCH (21:00)
[2020-04-07 04:00] VITALS: BP 145/55
[2020-04-07] MEDS: HYDRALAZINE HCL 100MG TABLET PO SCH ×3 (06:38→21:12)
[2020-04-07] MEDS: OMEPRAZOLE 20MG CAPSULE EXTENDED RELEASE PO SCH (06:38)
[2020-04-07] MEDS: TRAMADOL 50MG TABLET PO PRN ×3 (06:42→21:25)
[2020-04-07 07:41] LABS: BASOPHILS % 1.4 % (0.0-2.0); EOSINOPHILS % 8.6 % (0.0-5.0); HEMATOCRIT. 25.3 % (42.0-52.0); HEMOGLOBIN. 8.2 g/dL (14.0-18.0); LYMPHOCYTES % 9.6 % (20.0-50.0); MEAN CORPUSCULAR HEMOGLOBIN 29.6 pg (28.0-32.0); MEAN CORPUSCULAR VOLUME 91.9 fL (80.0-94.0); MEAN PLATELET VOLUME 9.4 fl (7.4-10.4); MONOCYTES % 14.3 % (2.0-8.0); NEUTROPHILS % 66.1 % (40.0-76.0); PLATELET 96 x1000/uL (130-400); RED BLOOD CELL COUNT 2.76 mill/uL (4.7-6.1); RED CELL DISTRIBUTION WIDTH 15.6 % (11.6-14.6)
[2020-04-07 08:00] VITALS: BP 136/74
[2020-04-07 08:15] LABS: PHOSPHORUS 4.4 mg/dL (2.5-4.9)
[2020-04-07] MEDS: FOLIC ACID/VITAMIN B COMP W-C TABLET PO SCH (08:54)
[2020-04-07] MEDS: FUROSEMIDE 40MG TABLET PO SCH ×2 (08:55→21:12)
[2020-04-07 12:00] VITALS: BP 113/68
[2020-04-07 16:00] VITALS: BP 145/84
[2020-04-07 20:00] VITALS: BP 159/93
[2020-04-07] MEDS: NIFEDIPINE XL 30MG TAB PO SCH (21:11)
[2020-04-07] MEDS: POLYVINYL ALCOHOL OPHTH DROPS 15ML BOTHEYE PRN (21:12)
[2020-04-08] VITALS: BP 148/85
[2020-04-08 04:00] VITALS: BP 135/79
[2020-04-08] MEDS: OMEPRAZOLE 20MG CAPSULE EXTENDED RELEASE PO SCH (06:21)
[2020-04-08] MEDS: HYDRALAZINE HCL 100MG TABLET PO SCH ×3 (06:21→21:33)
[2020-04-08] MEDS: TRAMADOL 50MG TABLET PO PRN (06:22)
[2020-04-08 07:47] LABS: BASOPHILS % 2.5 % (0.0-2.0); EOSINOPHILS % 11.4 % (0.0-5.0); HEMATOCRIT. 25.2 % (42.0-52.0); LYMPHOCYTES % 8.4 % (20.0-50.0); MEAN CORPUSCULAR HEMOGLOBIN 29.2 pg (28.0-32.0); MEAN CORPUSCULAR VOLUME 92.4 fL (80.0-94.0); MEAN PLATELET VOLUME 9.7 fl (7.4-10.4); MONOCYTES % 14.8 % (2.0-8.0); NEUTROPHILS % 62.9 % (40.0-76.0); PLATELET 124 x1000/uL (130-400); RED BLOOD CELL COUNT 2.72 mill/uL (4.7-6.1); RED CELL DISTRIBUTION WIDTH 15.8 % (11.6-14.6)
[2020-04-08 08:12] VITALS: BP 129/72
[2020-04-08 09:00] LABS: PHOSPHORUS 4.5 mg/dL (2.5-4.9)
[2020-04-08] MEDS: FUROSEMIDE 40MG TABLET PO SCH (09:00)
[2020-04-08] MEDS: FOLIC ACID/VITAMIN B COMP W-C TABLET PO SCH (09:00)
[2020-04-08 12:15] VITALS: BP 142/74
[2020-04-08] MEDS ORDERED: POLY15DR31 EACHEYE (13:44)
[2020-04-08 16:16] VITALS: BP 169/77
[2020-04-08 20:00] VITALS: BP 160/82
[2020-04-08] MEDS: NIFEDIPINE XL 30MG TAB PO SCH (20:43)
[2020-04-08] MEDS: POLYVINYL ALCOHOL OPHTH DROPS 15ML BOTHEYE PRN (20:46)
[2020-04-08] MEDS: LOPERAMIDE HCL 2MG CAPSULE PO PRN (20:46)
[2020-04-09 00:25] VITALS: BP 141/79
[2020-04-09] MEDS: TRAMADOL 50MG TABLET PO PRN ×2 (02:55→14:33)
[2020-04-09 04:00] VITALS: BP 144/85
[2020-04-09] MEDS: LOPERAMIDE HCL 2MG CAPSULE PO PRN ×2 (04:47→14:33)
[2020-04-09] MEDS: HYDRALAZINE HCL 100MG TABLET PO SCH ×3 (06:13→22:06)
[2020-04-09] MEDS: OMEPRAZOLE 20MG CAPSULE EXTENDED RELEASE PO SCH (06:21)
[2020-04-09 08:00] VITALS: BP 102/78
[2020-04-09] MEDS: FOLIC ACID/VITAMIN B COMP W-C TABLET PO SCH (08:48)
[2020-04-09 12:00] VITALS: BP 161/59
[2020-04-09 16:00] VITALS: BP 176/88
[2020-04-09] MEDS: CLONIDINE 0.1MG TABLET PO PRN (17:52)
[2020-04-09 20:00] VITALS: BP 130/76
[2020-04-09] MEDS: FUROSEMIDE 20MG TABLET PO SCH (22:05)
[2020-04-09] MEDS: NIFEDIPINE XL 30MG TAB PO SCH (22:06)
[2020-04-10] VITALS: BP 136/83
[2020-04-10 04:00] VITALS: BP 146/72
[2020-04-10] MEDS: OMEPRAZOLE 20MG CAPSULE EXTENDED RELEASE PO SCH (06:42)
[2020-04-10] MEDS: HYDRALAZINE HCL 100MG TABLET PO SCH ×3 (06:42→23:28)
[2020-04-10 08:51] VITALS: BP 137/65
[2020-04-10] MEDS: FOLIC ACID/VITAMIN B COMP W-C TABLET PO SCH (09:04)
[2020-04-10] MEDS: FUROSEMIDE 20MG TABLET PO SCH ×2 (09:05→23:26)
[2020-04-10] MEDS ORDERED: *PATIENT'S OWN MEDICATION STORAGE XX SCH (09:15)
[2020-04-10] MEDS: TRAMADOL 50MG TABLET PO PRN (09:53)
[2020-04-10 12:24] VITALS: BP 154/78
[2020-04-10 16:32] VITALS: BP 143/70
[2020-04-10] MEDS: ACETAMINOPHEN 325MG TABLET PO PRN (21:22)
[2020-04-10] MEDS: NIFEDIPINE XL 30MG TAB PO SCH (21:23)
[2020-04-10] MEDS: LOPERAMIDE HCL 2MG CAPSULE PO PRN (23:27)
[2020-04-11] VITALS: BP 140/71
[2020-04-11 04:00] VITALS: BP 142/72
[2020-04-11] MEDS: HYDRALAZINE HCL 100MG TABLET PO SCH ×3 (05:13→23:02)
[2020-04-11] MEDS: OMEPRAZOLE 20MG CAPSULE EXTENDED RELEASE PO SCH (06:21)
[2020-04-11 08:00] VITALS: BP 126/62
[2020-04-11 08:01] LABS: BASOPHILS % 2.1 % (0.0-2.0); HEMATOCRIT. 24.4 % (42.0-52.0); HEMOGLOBIN. 7.9 g/dL (14.0-18.0); LYMPHOCYTES % 10.1 % (20.0-50.0); MEAN CORPUSCULAR HEMOGLOBIN 29.2 pg (28.0-32.0); MEAN CORPUSCULAR VOLUME 90.4 fL (80.0-94.0); MEAN PLATELET VOLUME 9.7 fl (7.4-10.4); MONOCYTES % 14.7 % (2.0-8.0); NEUTROPHILS % 63.1 % (40.0-76.0); PHOSPHORUS 4.5 mg/dL (2.5-4.9); PLATELET 131 x1000/uL (130-400); RED BLOOD CELL COUNT 2.69 mill/uL (4.7-6.1); RED CELL DISTRIBUTION WIDTH 15.1 % (11.6-14.6)
[2020-04-11] MEDS: FUROSEMIDE 20MG TABLET PO SCH ×2 (09:00→22:02)
[2020-04-11] MEDS: FOLIC ACID/VITAMIN B COMP W-C TABLET PO SCH (09:16)
[2020-04-11] MEDS: POLYVINYL ALCOHOL OPHTH DROPS 15ML BOTHEYE PRN (09:24)
[2020-04-11] MEDS: ACETAMINOPHEN 325MG TABLET PO PRN (09:26)
[2020-04-11 12:00] VITALS: BP 159/82
[2020-04-11 16:00] VITALS: BP 134/74
[2020-04-11] MEDS: ENOXAPARIN 40MG/0.4ML SYR SUBCUT SCH (17:53)
[2020-04-11 20:00] VITALS: BP 134/79
[2020-04-11] MEDS: HEPARIN SODIUM 1,000 UNIT/1ML VIAL IV NR ×2 (21:11→21:13)
[2020-04-11] MEDS: TRAMADOL 50MG TABLET PO PRN (22:04)
[2020-04-11] MEDS: NIFEDIPINE XL 30MG TAB PO SCH (22:04)
[2020-04-12 04:00] VITALS: BP 136/70
[2020-04-12] MEDS: ACETAMINOPHEN 325MG TABLET PO PRN (05:41)
[2020-04-12] MEDS: HYDRALAZINE HCL 100MG TABLET PO SCH ×3 (05:41→22:33)
[2020-04-12] MEDS: OMEPRAZOLE 20MG CAPSULE EXTENDED RELEASE PO SCH (06:49)
[2020-04-12 08:00] VITALS: BP 139/76
[2020-04-12] MEDS: FOLIC ACID/VITAMIN B COMP W-C TABLET PO SCH (09:04)
[2020-04-12] MEDS: FUROSEMIDE 20MG TABLET PO SCH ×2 (09:04→20:55)
[2020-04-12] MEDS: TRAMADOL 50MG TABLET PO PRN (09:10)
[2020-04-12 12:00] VITALS: BP_SYST 144; BP_SYST 163; BP_DIAS 60; BP_DIAS 78
[2020-04-12 16:00] VITALS: BP_SYST 134; BP_SYST 145; BP_DIAS 49; BP_DIAS 69
[2020-04-12] MEDS: ENOXAPARIN 40MG/0.4ML SYR SUBCUT SCH (18:30)
[2020-04-12 20:00] VITALS: BP 153/81
[2020-04-12] MEDS: NIFEDIPINE XL 30MG TAB PO SCH (20:55)
[2020-04-13] VITALS (7 sets, daily range): BP systolic 127–149; BP diastolic 61–92
[2020-04-13] MEDS: TRAMADOL 50MG TABLET PO PRN ×2 (06:20→18:56)
[2020-04-13] MEDS: HYDRALAZINE HCL 100MG TABLET PO SCH ×2 (06:20→15:33)
[2020-04-13] MEDS: OMEPRAZOLE 20MG CAPSULE EXTENDED RELEASE PO SCH (06:20)
[2020-04-13 07:16] LABS: HEMATOCRIT. 24.5 % (42.0-52.0); HEMOGLOBIN. 7.9 g/dL (14.0-18.0); MEAN CORPUSCULAR HEMOGLOBIN 29.1 pg (28.0-32.0); MEAN CORPUSCULAR VOLUME 89.7 fL (80.0-94.0); MEAN PLATELET VOLUME 9.9 fl (7.4-10.4); PLATELET 108 x1000/uL (130-400); RED BLOOD CELL COUNT 2.73 mill/uL (4.7-6.1); RED CELL DISTRIBUTION WIDTH 15.1 % (11.6-14.6)
[2020-04-13 07:30] LABS: PHOSPHORUS 4.1 mg/dL (2.5-4.9)
[2020-04-13] MEDS: FOLIC ACID/VITAMIN B COMP W-C TABLET PO SCH (09:24)
[2020-04-13] MEDS: FUROSEMIDE 20MG TABLET PO SCH (09:24)
[2020-04-13] MEDS: ACETAMINOPHEN 325MG TABLET PO PRN (09:29)
[2020-04-13] MEDS: POLYVINYL ALCOHOL OPHTH DROPS 15ML BOTHEYE PRN (09:30)
[2020-04-13] MEDS: ENOXAPARIN 40MG/0.4ML SYR SUBCUT SCH (18:00)
[2020-04-13 22:28] LABS: PLATELET ESTIMATE DECREASED
== END 2020-04-13 19:45 | DRG 194 ==
LOC: ER 11:37 → 5WST 14:50 → ENRESERV 15:44 → 6EST 03-24 20:03 → 6WST 04-03 12:52 → 6EST 04-10 22:21
PROVIDERS: ADMIT Internal Medicine; ATTEND Internal Medicine
PROC: 5A1D70Z Performance of Urinary Filtration, Intermittent, Less than 6 Hours Per Day (ICD-10-PCS; 2020-03-20)
PROC: 0W9G3ZZ Drainage of Peritoneal Cavity, Percutaneous Approach (ICD-10-PCS; 2020-03-21)
PROC: 5A1D70Z Performance of Urinary Filtration, Intermittent, Less than 6 Hours Per Day (ICD-10-PCS; 2020-03-22)
PROC: 5A1D70Z Performance of Urinary Filtration, Intermittent, Less than 6 Hours Per Day (ICD-10-PCS; 2020-03-24)
PROC: 5A1D70Z Performance of Urinary Filtration, Intermittent, Less than 6 Hours Per Day (ICD-10-PCS; 2020-03-26)
PROC: 5A1D70Z Performance of Urinary Filtration, Intermittent, Less than 6 Hours Per Day (ICD-10-PCS; 2020-03-29)
PROC: 5A1D70Z Performance of Urinary Filtration, Intermittent, Less than 6 Hours Per Day (ICD-10-PCS; 2020-04-03)
PROC: 0W9G3ZZ Drainage of Peritoneal Cavity, Percutaneous Approach (ICD-10-PCS; principal; 2020-04-04)
PROC: 5A1D70Z Performance of Urinary Filtration, Intermittent, Less than 6 Hours Per Day (ICD-10-PCS; 2020-04-06)
PROC: 5A1D70Z Performance of Urinary Filtration, Intermittent, Less than 6 Hours Per Day (ICD-10-PCS; 2020-04-08)
PROC: 5A1D70Z Performance of Urinary Filtration, Intermittent, Less than 6 Hours Per Day (ICD-10-PCS; 2020-04-11)
DX: I13.2 Hypertensive heart and chronic kidney disease with heart failure and with stage 5 chronic kidney disease, or end stage renal disease (principal); I50.23 Acute on chronic systolic (congestive) heart failure; E44.0 Moderate protein-calorie malnutrition; D61.818 Other pancytopenia; N18.6 End stage renal disease; E66.01 Morbid (severe) obesity due to excess calories; E87.5 Hyperkalemia; E87.8 Other disorders of electrolyte and fluid balance, not elsewhere classified; I16.0 Hypertensive urgency; I42.9 Cardiomyopathy, unspecified; J98.11 Atelectasis; R18.8 Other ascites; E24.9 Cushing's syndrome, unspecified; I87.8 Other specified disorders of veins; L60.2 Onychogryphosis; B35.1 Tinea unguium; I73.9 Peripheral vascular disease, unspecified; Z20.828 Contact with and (suspected) exposure to other viral communicable diseases; Z82.49 Family history of ischemic heart disease and other diseases of the circulatory system; Z91.19 Patient's noncompliance with other medical treatment and regimen; Z95.810 Presence of automatic (implantable) cardiac defibrillator; Z99.2 Dependence on renal dialysis; Z79.899 Other long term (current) drug therapy; Z68.42 Body mass index [BMI] 45.0-49.9, adult; R77.8 Other specified abnormalities of plasma proteins
CPT/HCPCS: 36415; 49083; 71045; 76705; 80048; 80053; 82962; 83735; 83880; 84100; 84484; 85025; 86705; 86706; 86709; 86803; 86900; 87116; 87340; 87426; 93005; 93923; 96374; 97110; 97162; 97164; 97166; 97168; 97530; 97535; 99285; J0885; J1644; J1650; J1815; J1940; J2997; J3490; Q0163; A4315

== ENCOUNTER 2020-09-22 18:39 | Inpatient (IN) | payer MEDICARE, MEDICAID ==
[~2020-09-22] VITALS: Ht 180.3 cm; Wt 105.7 kg
[~2020-09-22 18:39] MED LIST changes: -COR12 PO; +HYDR100T26 PO; -LOSA50TA41 MT; +NEPVIT PO; +NIFE-32 PO; +POLY15DR31 EACHEYE
[2020-09-22] MEDS ORDERED: ACETAMINOPHEN 325MG TABLET PO STA (19:05)
[2020-09-22] MEDS ORDERED: MORPHINE SULFATE 2 MG/ML CPJ (NOT FOR IM USE) IV ONE (19:15)
[2020-09-22 19:53] LABS: BASOPHILS % 1.3 % (0.0-2.0); EOSINOPHILS % 0.1 % (0.0-5.0); LYMPHOCYTES % 8.1 % (20.0-50.0); MEAN CORPUSCULAR HEMOGLOBIN 29.7 pg (28.0-32.0); MEAN CORPUSCULAR VOLUME 92.2 fL (80.0-94.0); MEAN PLATELET VOLUME 8.9 fl (7.4-10.4); MONOCYTES % 7.6 % (2.0-8.0); NEUTROPHILS % 82.9 % (40.0-76.0); PLATELET 93 x1000/uL (130-400); RED BLOOD CELL COUNT 3.36 mill/uL (4.7-6.1); RED CELL DISTRIBUTION WIDTH 18.2 % (11.6-14.6)
[2020-09-22 19:58] LABS: CHLORIDE 101 mEq/L (98-107)
[2020-09-22 20:01] LABS: INR 1.3; PROTHROMBIN TIME 13.6 sec (9.6-11.0)
[2020-09-22 20:07] LABS: CREATINE KINASE 309 IU/L (39-308)
[2020-09-22] MEDS ORDERED: ASPIRIN 300MG SUPP PR NR (20:45)
[2020-09-22] MEDS ORDERED: PIPERACILLIN/TAZOBACTAM 3.375GM/50ML PREMIX IV ONE (20:45)
[2020-09-22] MEDS ORDERED: VANCOMYCIN 1 G PREMIX 200 ML IV NR (20:45)
[2020-09-22] MEDS ORDERED: PIPERACILLIN/TAZ 3.375G PREMIX 50 ML IV NR (21:00)
[2020-09-22] MEDS: HYDRALAZINE HCL 100MG TABLET PO SCH (22:31)
[2020-09-22] MEDS ORDERED: ASPIRIN 81MG TABLET PO ONE (22:45)
[2020-09-22] MEDS ORDERED: ASPIRIN 81MG TABLET PO NR (23:00)
[2020-09-22] MEDS ORDERED: CLONIDINE 0.1MG TABLET PO PRN (23:15)
[2020-09-22] MEDS ORDERED: MAGNESIUM/ALUMINUM HYDROXIDE/SIMETHICONE 30ML UDC PO PRN (23:15)
[2020-09-22] MEDS ORDERED: DOCUSATE SODIUM 100MG CAPSULE PO PRN (23:15)
[2020-09-22] MEDS ORDERED: ONDANSETRON HCL 4MG/2ML INJ IV PRN (23:15)
[2020-09-22] MEDS ORDERED: DIPHENHYDRAMINE 50MG/ML VIAL IV PRN (23:15)
[2020-09-22] MEDS ORDERED: HYDROCODONE/ACETAMINOPHEN 5/325MG TABLET PO PRN (23:15)
[2020-09-22] MEDS ORDERED: GUAIFENESIN 200MG/10ML SUGAR FREE UDC PO PRN (23:15)
[2020-09-22] MEDS ORDERED: AMLODIPINE 10MG TABLET PO NR (23:45)
[2020-09-23] VITALS (7 sets, daily range): BP systolic 147–156; BP diastolic 77–95
[2020-09-23] MEDS: HYDRALAZINE HCL 100MG TABLET PO SCH ×3 (05:51→23:08)
[2020-09-23 10:15] LABS: HEMATOCRIT. 28.6 % (42.0-52.0); HEMOGLOBIN. 9.6 g/dL (14.0-18.0); MEAN CORPUSCULAR HEMOGLOBIN 30.3 pg (28.0-32.0); MEAN CORPUSCULAR VOLUME 90.3 fL (80.0-94.0); PLATELET 86 x1000/uL (130-400); RED BLOOD CELL COUNT 3.17 mill/uL (4.7-6.1); RED CELL DISTRIBUTION WIDTH 18.1 % (11.6-14.6)
[2020-09-23] MEDS: ACETAMINOPHEN 325MG TABLET PO PRN (10:51)
[2020-09-23 10:56] LABS: PHOSPHORUS 8.5 mg/dL (2.5-4.9)
[2020-09-23] MEDS: PIPERACILLIN/TAZOBACTAM 2.25 G in DEXTROSE 5% WATER 50 ML IV SCH ×2 (12:33→23:07)
[2020-09-23] MEDS ORDERED: PIPERACILLIN/TAZOBACTAM 3.375 G/VIAL IV SCH (14:00)
[2020-09-23] MEDS ORDERED: ALBUTEROL 6.7GM HFA INHALER ORI PRN (14:15)
[2020-09-23] MEDS: DEXAMETHASONE 4MG TABLET PO SCH (14:22)
[2020-09-23 17:06] LABS: PLATELET ESTIMATE DECREASED
[2020-09-23] MEDS: LOSARTAN POTASSIUM 25 MG TABLET PO SCH (17:23)
[2020-09-23] MEDS: CALCIUM ACETATE 667MG CAPSULE PO SCH (17:23)
[2020-09-23] MEDS ORDERED: EPOETIN ALFA-EPBX 4,000 UNIT/ML VIAL SUBCUT SCH (21:00)
[2020-09-23] MEDS ORDERED: NIFEDIPINE XL 30MG TAB PO SCH (21:00)
[2020-09-23 22:45] LABS: HEPATITIS A AB IGM NEGATIVE (NEGATIVE)
[2020-09-23 22:50] LABS: HEPATITIS B SURFACE ANTIGEN REACTIVE PEND CONFIR
[2020-09-23] MEDS ORDERED: DIGOXIN 500MCG/2ML AMP IV SCH (23:45)
[2020-09-24] VITALS: BP 105/74
[2020-09-24] MEDS: ACETAMINOPHEN 325MG TABLET PO PRN (01:45)
[2020-09-24 04:00] VITALS: BP 130/69
[2020-09-24] MEDS: HYDRALAZINE HCL 100MG TABLET PO SCH ×3 (05:48→22:00)
[2020-09-24] MEDS: PIPERACILLIN/TAZOBACTAM 2.25 G in DEXTROSE 5% WATER 50 ML IV SCH ×3 (05:48→21:08)
[2020-09-24 08:00] VITALS: BP 114/83
[2020-09-24] MEDS: CALCIUM ACETATE 667MG CAPSULE PO SCH ×3 (08:19→18:09)
[2020-09-24] MEDS: DEXAMETHASONE 4MG TABLET PO SCH (08:20)
[2020-09-24] MEDS: LOSARTAN POTASSIUM 25 MG TABLET PO SCH (08:20)
[2020-09-24] MEDS ORDERED: DILTIAZEM HCL 30MG TABLET PO SCH ×3 (09:45→12:00)
[2020-09-24 10:43] LABS: CHLORIDE 103 mEq/L (98-107)
[2020-09-24 12:00] VITALS: BP 126/77
[2020-09-24 15:12] LABS: HEMATOCRIT. 35.9 % (42.0-52.0); HEMOGLOBIN. 12.1 g/dL (14.0-18.0); MEAN CORPUSCULAR HEMOGLOBIN 30.3 pg (28.0-32.0); MEAN CORPUSCULAR VOLUME 89.9 fL (80.0-94.0); MEAN PLATELET VOLUME 9.5 fl (7.4-10.4); PLATELET 115 x1000/uL (130-400); RED BLOOD CELL COUNT 3.99 mill/uL (4.7-6.1); RED CELL DISTRIBUTION WIDTH 18.1 % (11.6-14.6)
[2020-09-24 16:00] VITALS: BP 116/77
[2020-09-24] MEDS: AMIODARONE HCL 200 MG TABLET PO SCH ×2 (18:07→23:59)
[2020-09-24] MEDS: DILTIAZEM HCL 30MG TABLET PO SCH (18:09)
[2020-09-24 20:18] VITALS: BP 109/62
[2020-09-24 21:27] LABS: PLATELET ESTIMATE DECREASED
[2020-09-25] MEDS: DILTIAZEM HCL 30MG TABLET PO SCH ×2 (00:01→06:12)
[2020-09-25 00:11] VITALS: BP 128/84
[2020-09-25] MEDS: ACETAMINOPHEN 325MG TABLET PO PRN (02:45)
[2020-09-25 04:00] VITALS: BP 123/59
[2020-09-25] MEDS: PIPERACILLIN/TAZOBACTAM 2.25 G in DEXTROSE 5% WATER 50 ML IV SCH (06:11)
[2020-09-25] MEDS: AMIODARONE HCL 200 MG TABLET PO SCH (06:11)
[2020-09-25 08:00] VITALS: BP 111/63
[2020-09-25] MEDS: CALCIUM ACETATE 667MG CAPSULE PO SCH (08:17)
[2020-09-25] MEDS: DEXAMETHASONE 4MG TABLET PO SCH (08:17)
[2020-09-25] MEDS: LOSARTAN POTASSIUM 25 MG TABLET PO SCH (08:17)
[2020-09-25 13:06] LABS: HBSAG SCREEN Negative (Negative)
== END 2020-09-25 10:45 | disposition left against medical advice (07) | DRG 871 ==
LOC: ER 18:39 → 7WST 21:34 → EDBEDREQSVC 23:26 → ENRESERV 23:32 → 7WST 09-23 12:24
PROVIDERS: ADMIT Hospitalist; ATTEND Hospitalist
DX: A41.89 Other specified sepsis (principal); G92 Toxic encephalopathy; I50.43 Acute on chronic combined systolic (congestive) and diastolic (congestive) heart failure; J12.82 Pneumonia due to coronavirus disease 2019; J96.01 Acute respiratory failure with hypoxia; N18.6 End stage renal disease; U07.1 COVID-19; D61.818 Other pancytopenia; D68.9 Coagulation defect, unspecified; I13.2 Hypertensive heart and chronic kidney disease with heart failure and with stage 5 chronic kidney disease, or end stage renal disease; I42.0 Dilated cardiomyopathy; R18.8 Other ascites; I24.8 Other forms of acute ischemic heart disease; N17.9 Acute kidney failure, unspecified; E66.9 Obesity, unspecified; E66.01 Morbid (severe) obesity due to excess calories; D89.839 Cytokine release syndrome, grade unspecified; E83.39 Other disorders of phosphorus metabolism; Z53.9 Procedure and treatment not carried out, unspecified reason; I48.91 Unspecified atrial fibrillation; K74.60 Unspecified cirrhosis of liver; Z79.899 Other long term (current) drug therapy; Z82.49 Family history of ischemic heart disease and other diseases of the circulatory system; Z68.32 Body mass index [BMI] 32.0-32.9, adult; Z83.3 Family history of diabetes mellitus; Z91.15 Patient's noncompliance with renal dialysis; Z91.19 Patient's noncompliance with other medical treatment and regimen; Z95.810 Presence of automatic (implantable) cardiac defibrillator; Z99.2 Dependence on renal dialysis
CPT/HCPCS: 36415; 71045; 74176; 80048; 80053; 82550; 83605; 83615; 83735; 84100; 84145; 84484; 85025; 85384; 86140; 86705; 86709; 86803; 87077; 87340; 87426; 93005; 93970; 99291; J0885; J1160; J2270; J2543; J3370; J7040; J7060; J8540; U0003; U0005

== ENCOUNTER 2021-01-06 17:12 | Inpatient (IN) | payer MEDICARE, MEDICAID ==
[~2021-01-06] VITALS: Ht 182.9 cm; Wt 108.4 kg
[2021-01-06] MEDS ORDERED: DEXTROSE 50% WATER 50ML SYRINGE IV ONE ×2 (18:15→19:15)
[2021-01-06 18:16] LABS: HEMATOCRIT. 26.4 % (42.0-52.0); HEMOGLOBIN. 8.8 g/dL (14.0-18.0); MEAN CORPUSCULAR HEMOGLOBIN 31.7 pg (28.0-32.0); MEAN CORPUSCULAR VOLUME 94.7 fL (80.0-94.0); MEAN PLATELET VOLUME 8.8 fl (7.4-10.4); PLATELET 227 x1000/uL (130-400); RED BLOOD CELL COUNT 2.78 mill/uL (4.7-6.1); RED CELL DISTRIBUTION WIDTH 16.3 % (11.6-14.6)
[2021-01-06 18:18] LABS: CHLORIDE 101 mEq/L (98-107)
[2021-01-06] MEDS ORDERED: SODIUM POLYSTYRENE SULFONATE 15 G/60 ML BOT PO ONE (19:15)
[2021-01-06] MEDS ORDERED: SODIUM BICARBONATE 8.4% 1 MEQ/ML 50ML SYR IV ONE (19:15)
[2021-01-06] MEDS ORDERED: INSULIN REGULAR (HUMULIN R) 300UNITS/3ML VIAL IV ONE (19:15)
[2021-01-06] MEDS ORDERED: SODIUM CHLORIDE 0.9% 1,000 ML IV ONE ×2 (19:30)
[2021-01-06] MEDS ORDERED: PIPERACILLIN/TAZOBACTAM 3.375GM/50ML PREMIX IV ONE (19:30)
[2021-01-06] MEDS ORDERED: VANCOMYCIN 1 G PREMIX 200 ML IV SCH (19:30)
[2021-01-06 19:37] LABS: PLATELET ESTIMATE NORMAL
[2021-01-06] MEDS ORDERED: PIPERACILLIN/TAZ 3.375G PREMIX 50 ML IV ONE (20:00)
[2021-01-07] VITALS (7 sets, daily range): BP systolic 155–171; BP diastolic 91–113
[2021-01-07] MEDS ORDERED: CLONIDINE 0.2MG TABLET PO NR (00:15)
[2021-01-07] MEDS: HYDRALAZINE 20MG/ML VIAL IV PRN ×2 (00:35→09:38)
[2021-01-07] MEDS ORDERED: VANCOMYCIN 750 MG PREMIX 150 ML IV NR ×2 (00:45→03:00)
[2021-01-07 06:41] LABS: HEMATOCRIT. 26.4 % (42.0-52.0); HEMOGLOBIN. 8.8 g/dL (14.0-18.0); MEAN CORPUSCULAR VOLUME 93.5 fL (80.0-94.0); RED BLOOD CELL COUNT 2.83 mill/uL (4.7-6.1); RED CELL DISTRIBUTION WIDTH 16.4 % (11.6-14.6)
[2021-01-07 06:52] LABS: CHLORIDE 102 mEq/L (98-107)
[2021-01-07] MEDS ORDERED: PIPERACILLIN/TAZOBACTAM 3.375 G in DEXTROSE 5% WATER 50 ML IV SCH (09:00)
[2021-01-07] MEDS ORDERED: PIPERACILLIN/TAZ 3.375G PREMIX 50 ML IV NR (09:00)
[2021-01-07] MEDS: PIPERACILLIN/TAZOBACTAM 3.375 G in DEXTROSE 5% WATER 50 ML IV SCH ×2 (09:38→21:39)
[2021-01-07 11:03] LABS: MEAN PLATELET VOLUME 9.3 fl (7.4-10.4); PLATELET 218 x1000/uL (130-400); PLATELET ESTIMATE NORMAL
[2021-01-07 11:28] LABS: BG BASE EXCESS -5.5 mmol/L (-2.0-2.0); BG FRACTION INSPIRED OXYGEN 21; BG HCO3 ACT 18.8 mmol/L (22.0-26.0); BG METHEMOGLOBIN 0.3 % (0.0-1.5); BG OXYGEN SATURATION 95.9 % (92.0-98.5); BG OXYHEMOGLOBIN 94.7 % (94.0-97.0); BG PCO2 32.2 mmHg (35.0-45.0); BG PH 7.385 (7.350-7.450); BG PO2 90.1 mmHg (75.0-100.0); BG SAMPLE SITE LEFT RADIAL; BG TOTAL HEMOGLOBIN 9.2 g/dL (12.0-18.0); BG VENT MODE ROOM AIR
[2021-01-07] MEDS ORDERED: SODIUM POLYSTYRENE SULFONATE 15 G/60 ML BOT PO SCH (12:30)
[2021-01-07] MEDS ORDERED: SODIUM BICARBONATE 8.4% 1 MEQ/ML 50ML SYR IV SCH (12:30)
[2021-01-07 12:42] LABS: HEPATITIS B SURFACE ANTIGEN NEGATIVE
[2021-01-07] MEDS: FOLIC ACID/VITAMIN B COMP W-C TABLET PO SCH (15:26)
[2021-01-07] MEDS ORDERED: NALOXONE HCL 0.4MG/ML VIAL IV PRN (16:45)
[2021-01-07] MEDS: HYDROMORPHONE HCL/PF 2MG/ML CPJ IV PRN (16:46)
[2021-01-07 17:10] LABS: INR 1.3; PROTHROMBIN TIME 13.6 sec (9.6-11.0)
[2021-01-07] MEDS ORDERED: EPOETIN ALFA-EPBX 10,000 UNIT/ML VIAL SUBCUT SCH (21:00)
[2021-01-08] VITALS: BP 158/102
[2021-01-08] MEDS: HYDRALAZINE 20MG/ML VIAL IV PRN ×2 (00:34→04:50)
[2021-01-08] MEDS: HYDROMORPHONE HCL/PF 2MG/ML CPJ IV PRN ×3 (02:06→15:16)
[2021-01-08 04:00] VITALS: BP_SYST 117; BP_SYST 171; BP_DIAS 110
[2021-01-08 05:47] LABS: HEMATOCRIT. 26.3 % (42.0-52.0); HEMOGLOBIN. 8.8 g/dL (14.0-18.0); MEAN CORPUSCULAR HEMOGLOBIN 30.8 pg (28.0-32.0); MEAN CORPUSCULAR VOLUME 92.4 fL (80.0-94.0); MEAN PLATELET VOLUME 8.5 fl (7.4-10.4); PLATELET 216 x1000/uL (130-400); RED BLOOD CELL COUNT 2.85 mill/uL (4.7-6.1)
[2021-01-08 06:07] LABS: CHLORIDE 98 mEq/L (98-107)
[2021-01-08 06:50] LABS: PHOSPHORUS 9.4 mg/dL (2.5-4.9)
[2021-01-08 08:00] VITALS: BP 160/98
[2021-01-08] MEDS: PIPERACILLIN/TAZOBACTAM 3.375 G in DEXTROSE 5% WATER 50 ML IV SCH ×2 (08:15→20:06)
[2021-01-08] MEDS: FOLIC ACID/VITAMIN B COMP W-C TABLET PO SCH (08:15)
[2021-01-08] MEDS ORDERED: SODIUM BICARBONATE 4% (2.4MEQ) 5ML VIAL IV ONE (09:22)
[2021-01-08] MEDS ORDERED: LIDOCAINE HCL 1% 20ML VIAL (Pyxis) INJ ONE (09:22)
[2021-01-08] MEDS: AMLODIPINE 10MG TABLET PO SCH (11:10)
[2021-01-08] MEDS: CALCIUM ACETATE 667MG CAPSULE PO SCH ×2 (11:11→17:01)
[2021-01-08 11:50] VITALS: BP 132/84
[2021-01-08 13:26] LABS: PLATELET ESTIMATE NORMAL
[2021-01-08] MEDS ORDERED: VANCOMYCIN 1 G PREMIX 200 ML IV SCH (14:00)
[2021-01-08 16:09] VITALS: BP 111/70
[2021-01-08 20:00] VITALS: BP 150/94
[2021-01-09] VITALS: BP 136/87
[2021-01-09 04:00] VITALS: BP 116/72
[2021-01-09] MEDS: HYDROMORPHONE HCL/PF 2MG/ML CPJ IV PRN ×3 (04:39→17:49)
[2021-01-09 06:38] LABS: HEMATOCRIT. 27.6 % (42.0-52.0); HEMOGLOBIN. 9.1 g/dL (14.0-18.0); MEAN CORPUSCULAR HEMOGLOBIN 30.6 pg (28.0-32.0); MEAN CORPUSCULAR VOLUME 92.3 fL (80.0-94.0); MEAN PLATELET VOLUME 8.7 fl (7.4-10.4); PLATELET 225 x1000/uL (130-400); RED BLOOD CELL COUNT 2.99 mill/uL (4.7-6.1); RED CELL DISTRIBUTION WIDTH 15.8 % (11.6-14.6)
[2021-01-09] MEDS: CALCIUM ACETATE 667MG CAPSULE PO SCH ×3 (06:57→17:49)
[2021-01-09 08:00] VITALS: BP 128/77
[2021-01-09 08:53] LABS: PHOSPHORUS 8.3 mg/dL (2.5-4.9)
[2021-01-09] MEDS: FOLIC ACID/VITAMIN B COMP W-C TABLET PO SCH (08:53)
[2021-01-09] MEDS: PIPERACILLIN/TAZOBACTAM 3.375 G in DEXTROSE 5% WATER 50 ML IV SCH ×2 (08:53→09:00)
[2021-01-09] MEDS: AMLODIPINE 10MG TABLET PO SCH (08:55)
[2021-01-09 10:59] LABS: PLATELET ESTIMATE NORMAL
[2021-01-09 12:00] VITALS: BP 144/92
[2021-01-09 16:00] VITALS: BP 154/95
[2021-01-09 20:00] VITALS: BP 125/79
[2021-01-09] MEDS ORDERED: LEVOFLOXACIN 500MG TABLET PO SCH (20:15)
[2021-01-10] VITALS: BP 156/103
[2021-01-10] MEDS: HYDROMORPHONE HCL/PF 2MG/ML CPJ IV PRN ×2 (00:03→07:33)
[2021-01-10 04:00] VITALS: BP 143/92
[2021-01-10] MEDS: CALCIUM ACETATE 667MG CAPSULE PO SCH ×3 (06:58→17:22)
[2021-01-10 07:38] LABS: HEMATOCRIT. 28.2 % (42.0-52.0); HEMOGLOBIN. 9.1 g/dL (14.0-18.0); MEAN CORPUSCULAR HEMOGLOBIN 30.3 pg (28.0-32.0); MEAN CORPUSCULAR VOLUME 93.9 fL (80.0-94.0); MEAN PLATELET VOLUME 8.5 fl (7.4-10.4); PLATELET 239 x1000/uL (130-400); RED CELL DISTRIBUTION WIDTH 15.8 % (11.6-14.6)
[2021-01-10 08:00] VITALS: BP 133/82
[2021-01-10 08:55] LABS: PHOSPHORUS 8.9 mg/dL (2.5-4.9)
[2021-01-10] MEDS: FOLIC ACID/VITAMIN B COMP W-C TABLET PO SCH (09:09)
[2021-01-10] MEDS ORDERED: ACETAMINOPHEN 325MG TABLET PO PRN (11:00)
[2021-01-10] MEDS: AMLODIPINE 10MG TABLET PO SCH (11:04)
[2021-01-10] MEDS ORDERED: AMLO10TA80 PO (11:56)
[2021-01-10] MEDS ORDERED: CALC667C PO (11:56)
[2021-01-10] MEDS ORDERED: LEVO500T89 MT (11:57)
[2021-01-10 12:00] VITALS: BP 130/82
[2021-01-10 12:57] VITALS: BP 133/82
[2021-01-10 16:55] LABS: PLATELET ESTIMATE NORMAL
== END 2021-01-10 17:55 | disposition home or self-care (01) | DRG 871 ==
LOC: ER 17:12 → 7EST 20:41 → CANRESERV 01-07 00:06 → ENRESERV 01-07 00:06
PROVIDERS: ADMIT Internal Medicine; ATTEND Internal Medicine
PROC: 5A1D70Z Performance of Urinary Filtration, Intermittent, Less than 6 Hours Per Day (ICD-10-PCS; principal; 2021-01-07)
PROC: 5A1D70Z Performance of Urinary Filtration, Intermittent, Less than 6 Hours Per Day (ICD-10-PCS; 2021-01-08)
PROC: 0W9G3ZZ Drainage of Peritoneal Cavity, Percutaneous Approach (ICD-10-PCS; 2021-01-08)
PROC: 5A1D70Z Performance of Urinary Filtration, Intermittent, Less than 6 Hours Per Day (ICD-10-PCS; 2021-01-10)
DX: A41.9 Sepsis, unspecified organism (principal); E43 Unspecified severe protein-calorie malnutrition; G92 Toxic encephalopathy; N18.6 End stage renal disease; I50.23 Acute on chronic systolic (congestive) heart failure; K65.2 Spontaneous bacterial peritonitis; E87.2 Acidosis; I13.2 Hypertensive heart and chronic kidney disease with heart failure and with stage 5 chronic kidney disease, or end stage renal disease; J98.11 Atelectasis; L03.116 Cellulitis of left lower limb; E24.9 Cushing's syndrome, unspecified; R18.8 Other ascites; D64.9 Anemia, unspecified; D72.10 Eosinophilia, unspecified; E16.2 Hypoglycemia, unspecified; I87.8 Other specified disorders of veins; Z20.822 Contact with and (suspected) exposure to COVID-19; E87.5 Hyperkalemia; I50.813 Acute on chronic right heart failure; I73.9 Peripheral vascular disease, unspecified; I16.0 Hypertensive urgency; S80.811A Abrasion, right lower leg, initial encounter; X58.XXXA Exposure to other specified factors, initial encounter; Y93.89 Activity, other specified; Y92.89 Other specified places as the place of occurrence of the external cause; Y99.8 Other external cause status; Z82.49 Family history of ischemic heart disease and other diseases of the circulatory system; Z83.3 Family history of diabetes mellitus; Z91.15 Patient's noncompliance with renal dialysis; Z99.2 Dependence on renal dialysis; Z95.0 Presence of cardiac pacemaker; Z68.32 Body mass index [BMI] 32.0-32.9, adult; Z79.899 Other long term (current) drug therapy
CPT/HCPCS: 36415; 36600; 49083; 71045; 80048; 80053; 80202; 82040; 82375; 82805; 83605; 83615; 83735; 83880; 84100; 84145; 84484; 85025; 86705; 86709; 86803; 87340; 87426; 93005; 93923; 99291; C1893; J0360; J0885; J1170; J1815; J2543; J3370; J3490; J7030; J7040; J7060

== ENCOUNTER 2021-04-18 19:45 | Emergency (ER) | payer MEDICARE, MEDICAID ==
[~2021-04-18] VITALS: Ht 180.3 cm; Wt 99.0 kg
[~2021-04-18 19:45] MED LIST changes: +AMLO10TA80 PO; +CALC667C PO; -HYDR100T26 PO; +LEVO500T89 MT; -NIFE-32 PO
[2021-04-18] MEDS ORDERED: DOXYCYCLINE HYCLATE 100MG CAPSULE PO ONE (22:45)
[2021-04-18] MEDS ORDERED: HYDROCODONE/ACETAMINOPHEN 5/325MG TABLET PO ONE (22:45)
[2021-04-18 22:51] VITALS: BP 198/87
[2021-04-18] MEDS ORDERED: TRAM50TA3 MT (22:52)
[2021-04-18] MEDS ORDERED: DOXY100T2 MT (22:52)
== END 2021-04-18 23:30 | disposition home or self-care (01) ==
LOC: ER 19:45
DX: S80.922A Unspecified superficial injury of left lower leg, initial encounter (principal); L03.116 Cellulitis of left lower limb; I13.2 Hypertensive heart and chronic kidney disease with heart failure and with stage 5 chronic kidney disease, or end stage renal disease; N18.6 End stage renal disease; I50.9 Heart failure, unspecified; Z99.2 Dependence on renal dialysis; Z79.899 Other long term (current) drug therapy; Z95.0 Presence of cardiac pacemaker; X58.XXXA Exposure to other specified factors, initial encounter; Y93.89 Activity, other specified; Y92.89 Other specified places as the place of occurrence of the external cause; Y99.8 Other external cause status
CPT/HCPCS: 99283

== ENCOUNTER 2021-04-27 07:52 | Inpatient (IN) | payer OTHER, MEDICAID ==
[~2021-04-27] VITALS: Ht 172.7 cm; Wt 108.4 kg
[~2021-04-27 07:52] MED LIST changes: +DOXY100T2 MT; +TRAM50TA3 MT
[2021-04-27 08:43] LABS: BASOPHILS % 2.4 % (0.0-2.0); EOSINOPHILS % 5.5 % (0.0-5.0); HEMATOCRIT. 27.5 % (42.0-52.0); HEMOGLOBIN. 8.9 g/dL (14.0-18.0); LYMPHOCYTES % 9.4 % (20.0-50.0); MEAN CORPUSCULAR HEMOGLOBIN 29.8 pg (28.0-32.0); MEAN CORPUSCULAR VOLUME 92.3 fL (80.0-94.0); MEAN PLATELET VOLUME 8.4 fl (7.4-10.4); MONOCYTES % 11.6 % (2.0-8.0); NEUTROPHILS % 71.1 % (40.0-76.0); PLATELET 241 x1000/uL (130-400); RED BLOOD CELL COUNT 2.98 mill/uL (4.7-6.1); RED CELL DISTRIBUTION WIDTH 18.8 % (11.6-14.6)
[2021-04-27 09:28] LABS: CHLORIDE 105 mEq/L (98-107)
[2021-04-27] MEDS ORDERED: FUROSEMIDE 100MG/10ML VIAL IV STA (09:49)
[2021-04-27] MEDS ORDERED: ALBUTEROL (0.083%) 2.5MG/3ML NEB HHN ONE (10:00)
[2021-04-27] MEDS ORDERED: SODIUM BICARBONATE 8.4% 1 MEQ/ML 50ML SYR IV ONE (10:00)
[2021-04-27] MEDS ORDERED: CALCIUM CHLORIDE 1GM/10ML SYR IV ONE (10:00)
[2021-04-27] MEDS ORDERED: DEXTROSE 50% WATER 50ML SYRINGE IV ONE (10:00)
[2021-04-27] MEDS ORDERED: INSULIN REGULAR (HUMULIN R) 300UNITS/3ML VIAL IV ONE (10:00)
[2021-04-27] MEDS ORDERED: OXYCODONE HCL/ACETAMINOPHEN 5/325MG TABLET PO ONE (10:45)
[2021-04-27 12:45] LABS: HEPATITIS B SURFACE ANTIGEN NEGATIVE
[2021-04-27] MEDS ORDERED: DOCUSATE SODIUM 100MG CAPSULE PO PRN (14:30)
[2021-04-27] MEDS ORDERED: DIPHENHYDRAMINE 50MG/ML VIAL IV PRN (14:30)
[2021-04-27] MEDS ORDERED: ACETAMINOPHEN 325MG TABLET PO PRN (14:30)
[2021-04-27] MEDS: AMLODIPINE 10MG TABLET PO SCH (14:30)
[2021-04-27] MEDS ORDERED: GUAIFENESIN 200MG/10ML SUGAR FREE UDC PO PRN (14:30)
[2021-04-27] MEDS ORDERED: ONDANSETRON HCL 4MG/2ML INJ IV PRN (14:30)
[2021-04-27] MEDS: HYDROCODONE/ACETAMINOPHEN 5/325MG TABLET PO PRN ×2 (17:51→22:23)
[2021-04-27] MEDS: CLONIDINE 0.1MG TABLET PO PRN (18:11)
[2021-04-27] MEDS ORDERED: EPOETIN ALFA-EPBX 10,000 UNIT/ML VIAL SUBCUT SCH (21:00)
[2021-04-28] VITALS (7 sets, daily range): BP systolic 121–156; BP diastolic 67–85
[2021-04-28] MEDS: HYDROCODONE/ACETAMINOPHEN 5/325MG TABLET PO PRN ×2 (04:26→09:11)
[2021-04-28] MEDS: AMLODIPINE 10MG TABLET PO SCH (09:11)
[2021-04-28 09:49] LABS: BASOPHILS % 1.3 % (0.0-2.0); EOSINOPHILS % 4.8 % (0.0-5.0); HEMATOCRIT. 24.6 % (42.0-52.0); LYMPHOCYTES % 9.2 % (20.0-50.0); MEAN CORPUSCULAR HEMOGLOBIN 30.1 pg (28.0-32.0); MEAN CORPUSCULAR VOLUME 92.7 fL (80.0-94.0); MEAN PLATELET VOLUME 9.1 fl (7.4-10.4); NEUTROPHILS % 72.7 % (40.0-76.0); PLATELET 220 x1000/uL (130-400); RED BLOOD CELL COUNT 2.65 mill/uL (4.7-6.1)
[2021-04-28 10:00] LABS: CHLORIDE 104 mEq/L (98-107)
[2021-04-28] MEDS ORDERED: NALOXONE HCL 0.4MG/ML VIAL IV PRN (12:45)
[2021-04-28] MEDS: DOXYCYCLINE HYCLATE 100MG CAPSULE PO SCH ×2 (12:54→20:49)
[2021-04-28] MEDS: TRAMADOL 50MG TABLET PO PRN ×2 (12:55→20:49)
[2021-04-28] MEDS ORDERED: HEPARIN SODIUM 1,000 UNIT/1ML VIAL IV NR (16:00)
[2021-04-29] VITALS: BP 149/82
[2021-04-29 04:00] VITALS: BP 146/81
[2021-04-29] MEDS: TRAMADOL 50MG TABLET PO PRN (06:01)
[2021-04-29 08:00] VITALS: BP 125/84
[2021-04-29] MEDS: AMLODIPINE 10MG TABLET PO SCH (08:35)
[2021-04-29] MEDS: DOXYCYCLINE HYCLATE 100MG CAPSULE PO SCH (08:35)
[2021-04-29] MEDS ORDERED: ENOXAPARIN 30MG/0.3ML SYR SUBCUT SCH (09:00)
[2021-04-29 11:11] VITALS: BP 159/82
[2021-04-29] MEDS: CLONIDINE 0.1MG TABLET PO PRN (11:37)
[2021-04-29] MEDS: HYDROCODONE/ACETAMINOPHEN 5/325MG TABLET PO PRN (11:37)
[2021-04-29 12:00] VITALS: BP 117/60
[2021-04-30] MEDS ORDERED: ENOXAPARIN 40MG/0.4ML SYR SUBCUT SCH (09:00)
== END 2021-04-29 11:40 | disposition home or self-care (01) | DRG 291 ==
LOC: ER 08:07 → 8WST 13:17 → ENRESERV 22:35
PROVIDERS: ADMIT Hospitalist; ATTEND Hospitalist
PROC: 5A1D70Z Performance of Urinary Filtration, Intermittent, Less than 6 Hours Per Day (ICD-10-PCS; principal; 2021-04-27)
DX: I13.2 Hypertensive heart and chronic kidney disease with heart failure and with stage 5 chronic kidney disease, or end stage renal disease (principal); N18.6 End stage renal disease; I50.33 Acute on chronic diastolic (congestive) heart failure; E44.1 Mild protein-calorie malnutrition; R18.8 Other ascites; E24.9 Cushing's syndrome, unspecified; E87.2 Acidosis; L97.929 Non-pressure chronic ulcer of unspecified part of left lower leg with unspecified severity; I27.20 Pulmonary hypertension, unspecified; D64.9 Anemia, unspecified; R79.89 Other specified abnormal findings of blood chemistry; Z20.822 Contact with and (suspected) exposure to COVID-19; E87.5 Hyperkalemia; Z99.2 Dependence on renal dialysis; Z91.19 Patient's noncompliance with other medical treatment and regimen; Z83.3 Family history of diabetes mellitus; Z82.49 Family history of ischemic heart disease and other diseases of the circulatory system; Z95.810 Presence of automatic (implantable) cardiac defibrillator
CPT/HCPCS: 36415; 71045; 76700; 80053; 83880; 84484; 85025; 86705; 86709; 86803; 87340; 87426; 93005; 94640; 99291; J0885; J1644; J1650; J1815; J1940; J3490

== ENCOUNTER 2022-10-17 21:31 | Inpatient (IN) | payer OTHER, MEDICAID ==
[~2022-10-17] VITALS: Ht 170.2 cm; Wt 90.7 kg
[~2022-10-17 21:31] MED LIST changes: +ASPI-1160 PO; +ATOR20TA PO; +COR6 PO; +LEVO-65 MT; -LEVO500T89 MT
[2022-10-17] MEDS ORDERED: METOPROLOL TARTRATE 5MG/5ML VIAL IV ONE (22:00)
[2022-10-17 22:53] LABS: HEMATOCRIT. 26.6 % (42.0-52.0); HEMOGLOBIN. 8.5 g/dL (14.0-18.0); MEAN CORPUSCULAR HEMOGLOBIN 30.9 pg (28.0-32.0); MEAN PLATELET VOLUME 8.5 fl (7.4-10.4); PLATELET 219 x1000/uL (130-400); RED BLOOD CELL COUNT 2.75 mill/uL (4.7-6.1); RED CELL DISTRIBUTION WIDTH 18.4 % (11.6-14.6)
[2022-10-17 23:02] LABS: CHLORIDE 91 mEq/L (98-107)
[2022-10-17 23:21] LABS: PLATELET ESTIMATE NORMAL
[2022-10-17] MEDS ORDERED: S IV NR (23:33)
[2022-10-17] MEDS ORDERED: SODIUM BICARBONATE 8.4% 1 MEQ/ML 50ML SYR IV NR (23:45)
[2022-10-17] MEDS ORDERED: DEXTROSE 50% WATER 50ML SYRINGE IV NR (23:45)
[2022-10-17] MEDS ORDERED: CALCIUM GLUCONATE 100MG/ML 10ML VIAL IV NR (23:45)
[2022-10-17] MEDS ORDERED: INSULIN REGULAR (HUMULIN R) 300UNITS/3ML VIAL IV NR (23:45)
[2022-10-17 23:54] LABS: INR 1.1; PARTIAL THROMBOPLASTIN TIME 31.2 sec (23.4-31.0); PROTHROMBIN TIME 11.9 sec (9.6-11.0)
[2022-10-18] VITALS (10 sets, daily range): BP systolic 99–116; BP diastolic 47–78; PULSE 92–116; RESP 16–20; TEMP 97.3–99.3
[2022-10-18] MEDS ORDERED: ASPIRIN 325MG EC TABLET PO NR (00:45)
[2022-10-18] MEDS ORDERED: METOPROLOL SUCCINATE 50MG ER TABLET PO ONE (01:15)
[2022-10-18] MEDS ORDERED: METOPROLOL TARTRATE 5MG/5ML VIAL IV ONE (02:00)
[2022-10-18] MEDS: APIXABAN 5 MG TABLET PO SCH ×2 (08:47→16:24)
[2022-10-18] MEDS: METOPROLOL TARTRATE 50MG TABLET PO SCH ×2 (08:47→21:00)
[2022-10-18] MEDS: SEVELAMER CARBONATE 800 MG TABLET PO SCH ×3 (08:48→16:25)
[2022-10-18] MEDS ORDERED: FOLIC ACID/VITAMIN B COMP W-C TABLET PO SCH (09:00)
[2022-10-18] MEDS ORDERED: MANNITOL 12.5G (25%) VIAL 50ML IV NR (09:30)
[2022-10-18 10:58] LABS: HEMATOCRIT. 21.7 % (42.0-52.0); HEMOGLOBIN. 7.2 g/dL (14.0-18.0); MEAN CORPUSCULAR HEMOGLOBIN 31.7 pg (28.0-32.0); MEAN PLATELET VOLUME 8.4 fl (7.4-10.4); PLATELET 174 x1000/uL (130-400); RED BLOOD CELL COUNT 2.26 mill/uL (4.7-6.1); RED CELL DISTRIBUTION WIDTH 18.2 % (11.6-14.6)
[2022-10-18] MEDS ORDERED: GABA-529 PO (15:20)
[2022-10-18] MEDS ORDERED: HYDR-4133 PO (15:23)
[2022-10-18 15:33] LABS: HEPATITIS B SURFACE ANTIGEN NEGATIVE
[2022-10-18] MEDS: HYDROCODONE/ACETAMINOPHEN 5/325MG TABLET PO PRN ×2 (16:25→21:44)
[2022-10-18 19:31] LABS: NUCLEATED RED BLOOD CELLS 1 /100 WBC; PLATELET ESTIMATE NORMAL
[2022-10-18] MEDS ORDERED: EPOETIN ALFA-EPBX 4,000 UNIT/ML VIAL SUBCUT NR (21:00)
[2022-10-19] VITALS: BP 100/70; PULSE 100; RESP 18; TEMP 97.9
[2022-10-19] MEDS: HYDROCODONE/ACETAMINOPHEN 5/325MG TABLET PO PRN ×3 (03:08→09:26)
[2022-10-19 04:00] VITALS: BP 118/76; PULSE 106; RESP 18; TEMP 100.4
[2022-10-19 08:00] VITALS: BP 105/69; PULSE 112; RESP 20; TEMP 97.7
[2022-10-19 08:28] VITALS: BP 105/69; PULSE 105; TEMP 97.7; O2SAT 96
[2022-10-19 09:26] VITALS: BP 105/69; PULSE 105; RESP 18
== END 2022-10-19 09:40 | disposition short-term general hospital (02) | DRG 640 ==
LOC: ER 21:31 → MICUSO 10-18 01:12 → 8WST 10-18 04:33
PROVIDERS: ADMIT Internal Medicine; ATTEND Internal Medicine
PROC: 5A1D70Z Performance of Urinary Filtration, Intermittent, Less than 6 Hours Per Day (ICD-10-PCS; principal; 2022-10-18)
DX: E87.5 Hyperkalemia (principal); E43 Unspecified severe protein-calorie malnutrition; L89.153 Pressure ulcer of sacral region, stage 3; N18.6 End stage renal disease; I13.2 Hypertensive heart and chronic kidney disease with heart failure and with stage 5 chronic kidney disease, or end stage renal disease; N17.9 Acute kidney failure, unspecified; E11.649 Type 2 diabetes mellitus with hypoglycemia without coma; E11.22 Type 2 diabetes mellitus with diabetic chronic kidney disease; Z20.822 Contact with and (suspected) exposure to COVID-19; E66.9 Obesity, unspecified; D72.829 Elevated white blood cell count, unspecified; D64.9 Anemia, unspecified; I50.9 Heart failure, unspecified; I48.91 Unspecified atrial fibrillation; Z95.0 Presence of cardiac pacemaker; Z99.2 Dependence on renal dialysis; Z82.49 Family history of ischemic heart disease and other diseases of the circulatory system; Z83.3 Family history of diabetes mellitus; Z68.31 Body mass index [BMI] 31.0-31.9, adult; Z79.4 Long term (current) use of insulin; Z91.158 Patient's noncompliance with renal dialysis for other reason
CPT/HCPCS: 36415; 71045; 74177; 80048; 80053; 82040; 82962; 83735; 83880; 84132; 84134; 84484; 85025; 86705; 86709; 86803; 86850; 86900; 87340; 87426; 90935; 99285; J0610; J0885; J1815; J1940; J2150; J3490